=== PATIENT | female | born 1965 | race Caucasian/White ===

== ENCOUNTER → 2016-10-06 | Outpatient (CLI) | payer OTHER ==
--- NOTE | 2016-10-06 09:37 | XR ---
EXAMINATION TYPE: XR chest 2V DATE OF EXAM: 10/06/2016 9:31 AM COMPARISON: NONE HISTORY: Shortness of breath TECHNIQUE: Frontal and lateral views of the chest are obtained. FINDINGS: Scattered senescent parenchymal changes noted. Hyperinflation compatible with COPD. No evidence for infiltrate. No evidence for atelectasis. Heart size is stable. Mediastinal structures are stable and grossly unremarkable. No evidence for hilar prominence. Degenerative changes dorsal spine. IMPRESSION: 1. No evidence for acute pulmonary disease.
== END | disposition home or self-care (01) ==
LOC: RADXRMAIN 09:18
PROVIDERS: ATTEND Otolaryngology
DX: R05 Cough (principal)
CPT/HCPCS: 71020

== ENCOUNTER → 2017-05-28 | Outpatient (CLI) | payer OTHER | END | disposition home or self-care (01) | LOC: LABPAT 16:32 | PROVIDERS: ATTEND Orthopaedic Surgery | DX: Z01.812 Encounter for preprocedural laboratory examination (principal) | CPT/HCPCS: 87070 ==

== ENCOUNTER 2017-06-04 08:00 | Inpatient (IN) | payer OTHER ==
[2017-05-31 08:51] VITALS: BMI 40.6
[~2017-06-04 08:00] MED LIST: ACETAMINOPHEN TAB 500 MG TAB PO ONE; DEXAMETHASONE SOD PHOSPHATE 10 MG/ML 1 ML VIAL IV ONE; HYDROmorphone 0.5 MG/0.5 ML SYRINGE IVP PRN; LACTATED RINGERS 1,000 ML IV SCH; MELOXICAM 7.5 MG TAB PO ONE; MIDAZOLAM 2 MG/2 ML VIAL IV PRN; ONDANSETRON 4 MG/2 ML VIAL IVP ONE; SCOPOLAMINE 1.5MG/72HR PATCH TRANSDERM ONE; TRANEXAMIC ACID 1,000 MG in SODIUM CHLORIDE 0.9% 100 ML IVPB ONE; ceFAZolin 2 GM in SODIUM CHLORIDE 0.9% 100 ML IVPB ONE
[2017-06-04] MEDS ORDERED: LIDOCAINE 1% 20 ML VIAL (10MG/ML) FOR IV START INTRADERMA ONE (11:40)
[2017-06-04] MEDS ORDERED: ROPIVACAINE 246.25 MG, EPINEPHrine 0.5 MG, KETOROLAC 30 MG, cloNIDine HCL/PF 80 MCG, WA... MISCELLANE ONE ×5 (12:14)
[2017-06-04] MEDS ORDERED: ePHEDrine SULFATE/0.9% NACL/PF 50 MG/5 ML SYRINGE IV ONE (12:20)
[2017-06-04] MEDS ORDERED: PROPOFOL 10 MG/ML 20 ML VIAL IV ONE (12:20)
[2017-06-04] MEDS ORDERED: SODIUM CHLORIDE 0.9% 100 ML BAG ONE (12:20)
[2017-06-04] MEDS ORDERED: fentaNYL (PF) 50 MCG/ML 2 ML AMP ONE (12:20)
[2017-06-04] MEDS ORDERED: MIDAZOLAM 2 MG/2 ML VIAL ONE (12:20)
[2017-06-04] MEDS ORDERED: TRANEXAMIC ACID 1,000 MG/10 ML VIAL ONE (12:20)
[2017-06-04] MEDS ORDERED: NA PHOS,M-B/NA PHOS,DI-BA 133 ML ENEMA RECTAL PRN (14:35)
[2017-06-04] MEDS ORDERED: BISACODYL 10 MG SUPP RECTAL PRN (14:35)
[2017-06-04] MEDS ORDERED: hydrOXYzine PAMOATE 25 MG CAP PO PRN (14:35)
[2017-06-04] MEDS ORDERED: NALOXONE 0.4 MG/ML 1 ML VIAL IV PRN (14:35)
[2017-06-04] MEDS ORDERED: MAGNESIUM HYDROXIDE 2,400 MG/10 ML CUP PO PRN (14:35)
[2017-06-04] MEDS ORDERED: HYDROmorphone 0.5 MG/0.5 ML SYRINGE IVP PRN ×2 (14:35)
[2017-06-04] MEDS ORDERED: ACETAMINOPHEN TAB 325 MG TAB PO PRN (14:35)
--- NOTE | 2017-06-04 14:40 | P.OP ---
Date of Procedure: 06/04/17 Procedure(s) Performed: PREOPERATIVE DIAGNOSIS: Right knee severe osteoarthritis with genu varum POSTOPERATIVE DIAGNOSIS: Right knee severe osteoarthritis with genu varum OPERATION: Right knee cemented total replacement arthroplasty. ANESTHESIA: Spinal ESTIMATED BLOOD LOSS: 100 ml. PARACHUTE MENDER: Grisel Ramirez PA-C (assistance with: patient positioning, retraction, exposure, hemostasis, leg positioning, implantation, irrigation, closure, dressing) COMPLICATIONS: None apparent. COMPONENTS IMPLANTED: Persona system from [employer] INDICATIONS: Ольга is a 52 year old female with a history of right knee osteoarthritis. The patient's knee is end-stage, and conservative management has failed. The operation of knee replacement has been discussed at length in the office, as well as potential risks and complications. These are inclusive of, but not limited to: bleeding, infection, scarring, discomfort, blood vessel and nerve damage, need for further surgery, failure to relieve symptoms, persistence, recurrence, or worsening of problems, loosening, dislocation, wear , blood clot, pulmonary embolism, , gait dysfunction, stiffness, and other risks as discussed in the office. The patient elects to proceed and the consent form has been signed. PROCEDURE: The patient was taken to the operating room and positioned on the operating room table in the supine position. Anesthesia was initiated. Care was taken to make sure that all pressure points were adequately padded. The operative lower extremity was prepped and draped in the usual aseptic fashion using ChloraPrep. Ioban drape was used for the case and the patient received intravenous antibiotics within one hour of the incision. A pneumotourniquet and leg dejesus were used for the case. The limb was exsanguinated with an Esmarch bandage and the tourniquet was inflated to 300 mmHg. Time-out was called confirming the patient's identity, side, procedure and administration of antibiotics and TXA. The incision was then created midline directly over the knee, carried down through skin and into the subcutaneous tissues and down to fascia. Full thickness subcutaneous medial flap was developed. Medial parapatellar arthrotomy was performed and the interior of the knee was inspected. There was end-stage osteoarthritis of the knee with a mild to moderate genu varum type deformity. The fat pad was excised and proximal medial release on the tibia was completed using meticulous dissection and a curved osteotome. The anterior cruciate ligament was taken down. Note was made of significant attrition of the anterior and significant degenerative appearance of the posterior cruciate ligaments. The exposure was excellent. The knee was flexed 90 degrees and the patella was everted. A spot was chosen on the femur approximately 1 cm anterior to the posterior cruciate ligament insertion and an intramedullary hole was created within the femur. The intramedullary guide was then set to 5 degrees of valgus. The distal cutting block was attached and pinned into position. An appropriate amount of distal femoral resection was set. The oscillating saw was then used to make the distal femoral cut. This cut was confirmed to be flat with the flat end of an osteotome. The retractors were placed around the tibia and the tibial surface was addressed. The angle and depth of resection was adjusted using an extramedullary cutting guide. The guide had a built-in 3 degree posterior slope cut. Once the cutting guide was adjusted appropriately and in line with the axis of the tibia and confirmed to be in good position in relation to the second metatarsal and transmalleolar axis, the tibial cut was then created with protection of the posterior neurovascular structures and the collateral ligaments. The tibial cut surface was removed and sized. Femoral sizing was then accomplished using anterior referencing. Care was taken to analyze the posterior condyles for signs of deficiency or severe wear, and adjustments to the guide were made, as appropriate. 3 degree external rotation pins were placed. The cutting jig for the femur was applied to these pins. The planned cuts were further analyzed prior to performing them with the oscillating saw. No femoral notching was produced. Bone fragments were removed and the cut surfaces were finished, as necessary, with a reciprocating saw. Spacer block technique was then used to confirm that the flexion and extension gaps were equal. Soft tissue releases and adjustment of the tibial and/or femoral cuts were made, as necessary, until the gaps were equal. This included release of the posterior cruciate ligament, which was tight in this patient and , if left unreleased, would have resulted in poor kinematics and possibly early loosening. The femur was then further finished for a posterior cruciate ligament substituting component. Patellar resurfacing was performed using a reamer. The size of the required patellar component was estimated and the patellar surface was then reamed down to a residual thickness which would recreate the te-moak thickness with the component. The placement of the patellar component was influenced by the degree of patellar subluxation, if any, noted on the preoperative x-rays. Prior to placing trial components, anesthetic solution consisting of ropivicaine with epinephrine, ketorolac, and clonidine was injected carefully and methodically in a grid pattern using aspiration technique into the soft tissue around the knee circumferentially, starting with the deeper tissues first and progressing to fascia, and then finally the skin/subcutaneous tissue. Particular care was taken when injecting the posterior capsule. The trial components were inserted. The tibial tray was allowed to self center and the patella was noted to track very well. The position of the tibial component was marked and the tibia was then finished for a stemmed tibial component. Cement was mixed on the back table and applied to the final components. Trial components were removed and the cut surfaces of the bone were pulse lavaged thoroughly and dried. Cement was then applied to the tibial surface and pressurized into the surface using finger pressurization technique. The tibial component was then applied and excess cement was removed after it was impacted securely and noted to be flush with the cut surface. In similar fashion, the cement was applied to the cut femoral surface, pressurized in using finger pressurization and the component was impacted into place. Excess cement was removed. The polyethylene spacer was then implanted and locked into position. The patellar component was then applied in similar technique and a patellar clamp was used to hold the patella in place as the cement hardened. Once the cement had fully hardened, the knee was reinspected. Any other cement extrusion was removed and final kinematic testing showed range of motion from 0 to 130 degrees with excellent stability, both medially and laterally and appropriate alignment of the leg. Patellar tracking was excellent. The knee was then thoroughly pulse lavaged with normal saline. The tourniquet was deflated and hemostasis was obtained with electrocautery and IV tranexamic acid, 1 g given at the start of the operation and 1 g at the start of closure. Closure was with #2 Ethibond in the fascia/capsule and supplemented with #2 Quill, 2-0 Vicryl suture was used for the subcutaneous tissues and 3-0 Quill for the skin. Dermabond/Steri-Strips were then applied. A lightly compressive dressing was applied using Webril and an Fahad wrap. The patient was then transferred to stretcher and taken to the recovery room in stable condition. Sponge and needle counts were correct.
[2017-06-04] MEDS: LACTATED RINGERS 1,000 ML IV SCH (14:59)
--- NOTE | 2017-06-04 14:59 | XR ---
EXAMINATION TYPE: XR knee limited RT DATE OF EXAM: 06/04/2017 CLINICAL HISTORY: Postoperative evaluation Two views of the right knee are submitted. Identified are changes of total knee arthroplasty with femoral and tibial components appearing well seated. Postsurgical soft tissue changes are noted. Alignment is anatomic.
[2017-06-04] MEDS ORDERED: CLOBETASOL PROP 0.05% CR 15GM TOPICAL PRN (15:30)
[2017-06-04] MEDS: FERROUS SULFATE 325 MG TAB PO SCH (17:45)
[2017-06-04] MEDS: HYDROcodone/APAP 5-325MG 1 EACH TAB PO PRN (17:56)
[2017-06-04] MEDS ORDERED: WARFARIN 5 MG TAB PO ONE (18:00)
[2017-06-04] MEDS ORDERED: ZOLPIDEM 5 MG TAB PO PRN (18:27)
[2017-06-04] MEDS: ceFAZolin 2 GM in SODIUM CHLORIDE 0.9% 100 ML IVPB SCH (20:01)
[2017-06-04] MEDS: SENNOSIDES-DOCUSATE SODIUM 1 EACH TAB PO SCH (20:01)
--- NOTE | 2017-06-04 20:18 | P.CONS ---
History of Present Illness - Reason for Consult Consult date: 06/04/17 medical management Requesting physician: Karlo Lane - Chief Complaint Postop knee osteoarthritis/repair. - History of Present Illness This is a consultation note on a 52-year-old white female who was essentially admitted for knee repair. Right knee arthroplasty was done today. She is an obese woman with history of hypertension and chronic pain, who has lost approximately 50 pounds in the last several months. She doing excellent as far as her dietary control. She has not seen postoperative for postop medical management. She is in minimal pain at this point. No significant voiding difficulties. No nausea, vomiting or diarrhea. Review of Systems All systems: negative Past Medical History Past Medical History: Hypertension, Osteoarthritis (OA), Skin Disorder, Sleep Apnea/CPAP/BIPAP Additional Past Medical History / Comment(s): rash rt ankle, previous sleep apnea no longer requires cpap History of Any Multi-Drug Resistant Organisms: None Reported Past Surgical History: Bariatric Surgery, Bladder Surgery, Cholecystectomy, Hernia Repair, Orthopedic Surgery Additional Past Surgical History / Comment(s): left thumb, rt shoulder,rt knee, shila carpal tunnel, clif en y 2004 Past Anesthesia/Blood Transfusion Reactions: No Reported Reaction Past Psychological History: Depression Smoking Status: Former smoker Past Alcohol Use History: None Reported Additional Past Alcohol Use History / Comment(s): quit smoking 1999 smoked 3ppd started at age 4 Past Drug Use History: None Reported - Past Family History Brother(s) Family Medical History: Deep Vein Thrombosis (DVT) Medications and Allergies Home Medications Medication Instructions Recorded Confirmed Type Bisoprolol-Hctz 10-6.25 mg [Ziac 1 tab PO QAM 05/31/17 06/04/17 History 10-6.25] Clobetasol Propionate [Temovate 1 applic TOPICAL DAILY PRN 05/31/17 06/04/17 History 0.05% Cream] Ferrous Sulfate [Feosol] 325 mg PO BID 05/31/17 06/04/17 History HYDROcodone/APAP 10-325MG [[place] 1 tab PO Q6H PRN 05/31/17 06/04/17 History 10-325] Meloxicam [Mobic] 7.5 mg PO DAILY PRN 05/31/17 06/04/17 History [place]-3 Fatty Acids/Fish Oil [Fish 1 cap PO DAILY 05/31/17 06/04/17 History Oil 1,000 mg Softgel] buPROPion HCL [Wellbutrin XL] 300 mg PO QAM 05/31/17 06/04/17 History HYDROcodone/APAP 5-325MG [[place] 1 - 2 each PO Q4-6H PRN #90 tab 06/04/17 Rx 5-325] Sennosides-Docusate Sodium 1 tab PO BID #60 tablet 06/04/17 Rx [Senokot-S] Warfarin [Coumadin] 2.5 mg PO DAILY #1 tab 06/04/17 Rx Allergies Allergy/AdvReac Type Severity Reaction Status Date / Time No Known Allergies Allergy Verified 06/04/17 14:57 Physical Exam Vitals: Vital Signs Temp Pulse Pulse Resp BP Pulse Ox 06/04/17 17:45 51 L 132/79 06/04/17 17:30 51 L 132/79 06/04/17 17:15 53 L 112/62 06/04/17 17:00 50 L 125/62 06/04/17 16:45 51 L 106/66 06/04/17 16:30 58 L 107/68 06/04/17 16:15 53 L 112/63 06/04/17 16:00 53 L 102/52 06/04/17 15:45 97.5 F L 55 L 16 110/53 95 06/04/17 15:32 59 L 16 101/55 95 06/04/17 15:16 50 L 16 107/57 95 06/04/17 15:01 50 L 16 116/62 94 L 06/04/17 14:45 48 L 16 110/60 100 06/04/17 14:33 97.2 F L 56 L 16 102/57 100 06/04/17 11:37 97.9 F 51 L 16 119/66 100 Intake and Output 06/04/17 06/04/17 06/04/17 06:59 14:59 22:59 Intake Total 1100 Output Total 50 Balance 1050 Intake: IV 1100 Output: Estimated Blood Loss 50 Other: Weight 107.501 kg Patient Weight 06/05/17 06:59 Weight 107.501 kg - Constitutional General appearance: obese - EENT Eyes: EOMI - Neck Neck: no lymphadenopathy - Respiratory Respiratory: bilateral: CTA - Cardiovascular Rhythm: regular Heart sounds: normal: S1, S2 - Gastrointestinal General gastrointestinal: soft, no tenderness - Integumentary Integumentary: no jaundiced - Neurologic Neurologic: CNII-XII intact, focal deficits - Psychiatric Psychiatric: appropriate affect Assessment and Plan (1) History of arthroplasty of both knees Status: Acute (2) Essential (primary) hypertension Status: Acute (3) Hyperlipemia Status: Acute (4) Obesity Status: Acute Plan: Reconcile home medications. Pulmonary toilet. DVT prophylaxis per orthopedic surgery. Reconcile medications. Check CBC and CMP in a.m. CODE STATUS is full otherwise. Time with Patient: Less than 30
[2017-06-04] MEDS ORDERED: TEMAZEPAM 15 MG CAP PO PRN (22:00)
[2017-06-05] MEDS: HYDROcodone/APAP 5-325MG 1 EACH TAB PO PRN ×4 (00:20→21:07)
[2017-06-05] MEDS: ceFAZolin 2 GM in SODIUM CHLORIDE 0.9% 100 ML IVPB SCH (03:42)
[2017-06-05] MEDS: ONDANSETRON 4 MG/2 ML VIAL IVP PRN ×2 (05:16→15:31)
[2017-06-05] MEDS: LACTATED RINGERS 1,000 ML IV SCH ×2 (06:50→10:50)
[2017-06-05 07:17] LABS: INR 1.4 (<1.2); Prothrombin Time 13.8 sec (9.0-12.0)
[2017-06-05 07:24] LABS: Basophils % (A) 0 %; CH 29.2; CHCM 32.3; Eosinophils # (A) 0.1 k/uL (0-0.7); Eosinophils % (A) 1 %; HCT 34.6 % (34.0-46.0); HDW 2.98; HGB 11.4 gm/dL (11.4-16.0); Luc # (Auto) 0.06; Luc % (Auto) 1; Lymphocytes # (A) 0.9 k/uL (1.0-4.8); Lymphocytes % (A) 10 %; MCH 29.8 pg (25.0-35.0); MCHC 32.8 g/dL (31.0-37.0); MCV 90.8 fL (80.0-100.0); Mean Platelet Volume 6.8; Monocytes # (A) 0.6 k/uL (0-1.0); Monocytes % (A) 6 %; Neutrophils # (A) 7.9 k/uL (1.3-7.7); Neutrophils % (A) 83 %; RBC 3.81 m/uL (3.80-5.40); RDW 13.1 % (11.5-15.5); WBC 9.5 k/uL (3.8-10.6); WBC (Perox) 10.28
[2017-06-05] MEDS: BISOPROLOL-HCTZ 10-6.25 MG 1 EACH TAB PO SCH (07:58)
[2017-06-05] MEDS: MELOXICAM 7.5 MG TAB PO SCH (08:10)
[2017-06-05] MEDS: FERROUS SULFATE 325 MG TAB PO SCH ×2 (08:10→17:38)
[2017-06-05] MEDS: buPROPion XL 300 MG TAB.ER.24H PO SCH (08:10)
[2017-06-05] MEDS ORDERED: NON-FORMULARY DRUG (Omega-3 Fatty Acids/Fish Oil [Fish Oil 1,000 Mg Softgel] 1 CAP) PO SCH (09:00)
--- NOTE | 2017-06-05 09:22 | P.PN ---
Subjective Principal diagnosis: Status post right total knee arthroplasty This is a 52 year-old female post right total knee arthroplasty. This is post- op day 1. The patient was evaluated at the bedside today. The patient denies nausea, vomiting, abdominal pain, shortness of breath, and chest pain this morning. She states her pain is controlled at this time. The patient has been up with physical therapy and ambulated in the hallway. Objective - Vital Signs Vital signs: Vital Signs Temp 97.2 F L 06/05/17 07:00 Pulse 50 L 06/05/17 07:00 Resp 16 06/05/17 07:00 BP 112/54 06/05/17 07:00 Pulse Ox 100 06/05/17 07:00 Intake & Output 06/04/17 06/05/17 06/05/17 18:59 06:59 18:59 Intake Total 1100 3600 Output Total 50 Balance 1050 3600 Weight 107.501 kg Intake: IV 1100 Intake, IV Titration 2000 Amount Lactated Ringers 1,000 ml 1800 @ 100 mls/hr IV .Q10H RD Rx#:[id number] ceFAZolin 2 gm In Sodium 200 Chloride 0.9% 100 ml @ 100 mls/hr IVPB Q8H RD Rx#:[id number] Oral 1600 Output: Estimated Blood Loss 50 Other: Voiding Method Toilet # Voids 4 - Exam The patient does not appear in acute distress. Alert and orientated x3. Dressing is clean dry and intact. Incision appears fine with no erythema or active drainage. Calf is soft and nontender. Good foot and ankle motion without difficulty. Sensation and circulatory status is intact. - Labs CBC & Chem 7: 06/05/17 06:51 Labs: Abnormal Lab Results - Last 24 Hours (Table) 06/05/17 06/05/17 Range/Units 06:51 06:51 Neutrophils # 7.9 H (1.3-7.7) k/uL Lymphocytes # 0.9 L (1.0-4.8) k/uL PT 13.8 H (9.0-12.0) sec INR 1.4 H (<1.2) Laboratory Tests 06/05/17 06:51 PT 13.8 H INR 1.4 H Assessment and Plan (1) Primary osteoarthritis of right knee Status: Acute (2) Status post right knee replacement Status: Acute Plan: 1. Continue pain control 2. Anticoagulation with Coumadin per protocol 3. Continue physical therapy, start CPM, and ambulation 4. Anticipate discharge home tomorrow
[2017-06-05] MEDS: MULTIVITAMINS, THERA 1 EACH TAB PO SCH (12:21)
[2017-06-05] MEDS ORDERED: WARFARIN 7.5 MG TAB PO ONE (18:00)
[2017-06-05] MEDS: SENNOSIDES-DOCUSATE SODIUM 1 EACH TAB PO SCH (21:07)
[2017-06-06] MEDS: HYDROcodone/APAP 5-325MG 1 EACH TAB PO PRN ×2 (02:23→07:44)
[2017-06-06 06:59] VITALS: BP 136/64; PULSE 63; RESP 16; TEMP 98
[2017-06-06 06:59] LABS: Prothrombin Time 19.5 sec (9.0-12.0)
[2017-06-06] MEDS: LACTATED RINGERS 1,000 ML IV SCH (07:25)
--- NOTE | 2017-06-06 07:48 | P.DS ---
Providers Date of admission: 06/04/17 11:17 Expected date of discharge: 06/06/17 Attending physician: Karlo Lane Consults: 06/04/17 14:35 Consult Physician Routine Consulting Provider: Marcela Ya Consult Reason/Comments: medical management Do you want consulting provider notified?: Yes Primary care physician: Joshua Soriano - Discharge Diagnosis(es) (1) Primary osteoarthritis of right knee Current Visit: Yes Status: Acute (2) Status post right knee replacement Current Visit: Yes Status: Acute Hospital Course: This is a 52-year-old female who was last seen with complaint of continued right knee pain. The patient has a known history of degenerative arthritis of the right knee and presents to discuss surgical options. After discussion and consideration the patient elects to proceed with total right knee arthroplasty. The patient is seen preoperatively by her primary care physician and cleared for surgery. The patient is admitted to [facility] for total right knee arthroplasty. The procedures performed without complication or sequelae. Patient is doing well postoperatively. Vital signs are stable at discharge. Labs are stable at discharge. the patient is ambulating well with walker with minimal assistance. The patient is discharged to home on postop day #2 pending medical clearance. Please see orders and refer to the med rec for accurate list of medications. Plan - Discharge Summary New Discharge Prescriptions: New HYDROcodone/APAP 5-325MG [[place] 5-325] 1 - 2 each PO Q4-6H PRN #90 tab PRN Reason: Pain Sennosides-Docusate Sodium [Senokot-S] 1 tab PO BID #60 tablet Warfarin [Coumadin] 2.5 mg PO DAILY #1 tab No Action buPROPion HCL [Wellbutrin XL] 300 mg PO QAM Meloxicam [Mobic] 7.5 mg PO DAILY PRN PRN Reason: Pain HYDROcodone/APAP 10-325MG [[place] 10-325] 1 tab PO Q6H PRN PRN Reason: Pain Ferrous Sulfate [Feosol] 325 mg PO BID Clobetasol Propionate [Temovate 0.05% Cream] 1 applic TOPICAL DAILY PRN PRN Reason: Rash Bisoprolol-Hctz 10-6.25 mg [Ziac 10-6.25] 1 tab PO QAM [place]-3 Fatty Acids/Fish Oil [Fish Oil 1,000 mg Softgel] 1 cap PO DAILY Discharge Medication List Bisoprolol-Hctz 10-6.25 mg [Ziac 10-6.25] 1 tab PO QAM 05/31/17 [History] Clobetasol Propionate [Temovate 0.05% Cream] 1 applic TOPICAL DAILY PRN [History] Ferrous Sulfate [Feosol] 325 mg PO BID 05/31/17 [History] HYDROcodone/APAP 10-325MG [[place] 10-325] 1 tab PO Q6H PRN 05/31/17 [History] Meloxicam [Mobic] 7.5 mg PO DAILY PRN 05/31/17 [History] [place]-3 Fatty Acids/Fish Oil [Fish Oil 1,000 mg Softgel] 1 cap PO DAILY [History] buPROPion HCL [Wellbutrin XL] 300 mg PO QAM 05/31/17 [History] HYDROcodone/APAP 5-325MG [[place] 5-325] 1 - 2 each PO Q4-6H PRN #90 tab 06/04/17 [Rx] Sennosides-Docusate Sodium [Senokot-S] 1 tab PO BID #60 tablet 06/04/17 [Rx] Warfarin [Coumadin] 2.5 mg PO DAILY #1 tab 06/04/17 [Rx] Follow up Appointment(s)/Referral(s): Grisel Ramirez, AG [PHYSICIAN SEAFOOD TECHNOLOGY SPECIALIST] - 2 Weeks [facility], [NON-STAFF] - Ambulatory/Diagnostic Orders: Continuous Passive Motion (CPM) Machine [DME.AMB1] Time Frame: 3 Weeks, Facility : [facility], Location: Case Management Prothrombin Time INR [LAB.AMB] Location: Determined By Patient Activity/Diet/Wound Care/Special Instructions: May bear wt as tolerated with walker. May shower if no drainage from incision. CPM 5-6h daily. CPM Through [facility], please call when arrive home [phone] Discharge Disposition: HOME WITH HOME HEALTH SERVICES
[2017-06-06] MEDS: MELOXICAM 7.5 MG TAB PO SCH (08:21)
[2017-06-06] MEDS: FERROUS SULFATE 325 MG TAB PO SCH (08:21)
[2017-06-06] MEDS: BISOPROLOL-HCTZ 10-6.25 MG 1 EACH TAB PO SCH (08:22)
[2017-06-06] MEDS: buPROPion XL 300 MG TAB.ER.24H PO SCH (08:22)
[2017-06-06] MEDS: ONDANSETRON 4 MG/2 ML VIAL IVP PRN (10:51)
[2017-06-06] MEDS: MULTIVITAMINS, THERA 1 EACH TAB PO SCH (11:44)
--- NOTE | 2017-06-06 22:39 | P.PN ---
Subjective Progress Note Date: 06/06/17 Principal diagnosis: Continuing care.Status post knee arthroplasty on the right. This is a continue proximal not on a 52-year-old white female who is status post op day #2 for knee arthroplasty. She is seen essentially for medical management. She has not underlying history of obesity which is being very well taken care of by recent dietary loss of weight and history of hypertension which is stable. Objective - Vital Signs Vital signs: Vital Signs Temp 98.0 F 06/06/17 06:58 Pulse 63 06/06/17 06:58 Resp 16 06/06/17 06:58 BP 136/64 06/06/17 06:58 Pulse Ox 97 06/06/17 06:58 Intake & Output 06/06/17 06/06/17 06/07/17 06:59 18:59 06:59 Intake Total 2100 Balance 2100 Intake: Intake, IV Titration 300 Amount Lactated Ringers 1,000 ml 300 @ 100 mls/hr IV .Q10H RD Rx#:[id number] Oral 1800 Other: Voiding Method Toilet # Voids 2 1 - Constitutional General appearance: Present: obese - EENT Eyes: Present: abnormal pupil, PERRLA - Neck Neck: Absent: lymphadenopathy - Respiratory Respiratory: bilateral: CTA - Cardiovascular Rhythm: regular Heart sounds: normal: S1, S2 - Gastrointestinal General gastrointestinal: Present: soft. Absent: tenderness - Integumentary Integumentary: Absent: rash - Psychiatric Psychiatric: Present: A&O x's 3 - Labs CBC & Chem 7: 06/05/17 06:51 Labs: Abnormal Lab Results - Last 24 Hours (Table) 06/06/17 Range/Units 06:36 PT 19.5 H (9.0-12.0) sec INR 2.0 H (<1.2) Assessment and Plan (1) History of arthroplasty of both knees Status: Acute (2) Essential (primary) hypertension Status: Acute (3) Hyperlipemia Status: Acute (4) Obesity Status: Acute Plan: Anticipate discharge today. Increase activity per physical therapy. Home health as necessary.
== END 2017-06-06 12:51 | disposition home health service (06) | DRG 470 ==
LOC: 2ORMAIN 11:17 → 3SUR 14:54
PROVIDERS: ADMIT Orthopaedic Surgery; ATTEND Orthopaedic Surgery
PROC: 0SRC0J9 Replacement of Right Knee Joint with Synthetic Substitute, Cemented, Open Approach (ICD-10-PCS; principal; 2017-06-04 12:30)
DX: M17.11 Unilateral primary osteoarthritis, right knee (principal); I10 Essential (primary) hypertension; E78.5 Hyperlipidemia, unspecified; E66.9 Obesity, unspecified; G47.30 Sleep apnea, unspecified; Z79.01 Long term (current) use of anticoagulants; F32.9 Major depressive disorder, single episode, unspecified; Z79.899 Other long term (current) drug therapy; M21.161 Varus deformity, not elsewhere classified, right knee; Z87.891 Personal history of nicotine dependence
CPT/HCPCS: 81025; 85025; 85610; 88300

== ENCOUNTER 2017-09-16 09:34 | Emergency (ER) | payer OTHER ==
[2017-09-16 09:42] VITALS: RESP 18
--- NOTE | 2017-09-16 10:11 | ED ---
General Adult HPI - General Chief complaint: Abdominal Pain Stated complaint: Right side pain Time Seen by Provider: 09/16/17 09:55 Source: patient, RN notes reviewed Mode of arrival: ambulatory Limitations: no limitations - History of Present Illness Initial comments: Patient is a 52-year-old female who presents emergency room today with chief complaint of right upper quadrant pain that started yesterday. She states that she was reaching up to get something with a countertop at the right sided rib. She states she stretched felt immediate pain to this area. States that she was able to continue to work and as the day went on it seemed to get worse. She states that time she went to bed last night she was having increased pain with any movements of turning and twisting. She states is located lower quadrant. She states feels muscular. She states she went to work but was having pain so she went to urgent care and was advised coming here to the emergency room. Patient states she has not taken any medication for this. She denies any other complaints or symptoms currently. Patient denies any recent fever, chills, shortness of breath, chest pain, back pain, nausea or vomiting, numbness or tingling, dysuria or hematuria, constipation or diarrhea, headaches or visual changes, or any other complaints. - Related Data Home Medications Medication Instructions Recorded Confirmed Ferrous Sulfate [Feosol] 325 mg PO BID 05/31/17 06/04/17 [place]-3 Fatty Acids/Fish Oil [Fish 1 cap PO DAILY 05/31/17 06/04/17 Oil 1,000 mg Softgel] buPROPion HCL [Wellbutrin XL] 300 mg PO QAM 05/31/17 06/04/17 Diclofenac Sodium Gel [Voltaren 4 gm TOPICAL QID PRN 09/16/17 09/16/17 Gel] Meloxicam [Mobic] 15 mg PO DAILY PRN 09/16/17 09/16/17 Allergies Allergy/AdvReac Type Severity Reaction Status Date / Time celery AdvReac Vomiting Verified 09/16/17 10:17 Review of Systems ROS Statement: Those systems with pertinent positive or pertinent negative responses have been documented in the HPI. ROS Other: All systems not noted in ROS Statement are negative. Past Medical History Past Medical History: Hypertension, Osteoarthritis (OA), Skin Disorder, Sleep Apnea/CPAP/BIPAP Additional Past Medical History / Comment(s): rash rt ankle, previous sleep apnea no longer requires cpap History of Any Multi-Drug Resistant Organisms: None Reported Past Surgical History: Bariatric Surgery, Bladder Surgery, Cholecystectomy, Hernia Repair, Orthopedic Surgery Additional Past Surgical History / Comment(s): left thumb, rt shoulder,total rt knee replaced, shila carpal tunnel, clif en y 2004 Past Anesthesia/Blood Transfusion Reactions: No Reported Reaction Past Psychological History: Depression Smoking Status: Former smoker Past Alcohol Use History: None Reported Past Drug Use History: None Reported - Past Family History Brother(s) Family Medical History: Deep Vein Thrombosis (DVT) General Exam - General Exam Comments Initial Comments: General: The patient is awake and alert, in no distress, and does not appear acutely ill. Eye: Pupils are equal, round and reactive to light, extra-ocular movements are intact. No nystagmus. There is normal conjunctiva bilaterally. No signs of icterus. Ears, nose, mouth and throat: There are moist mucous membranes and no oral lesions. Neck: The neck is supple, there is no tenderness or JVD. Cardiovascular: There is a regular rate and rhythm. No murmur, rub or gallop is appreciated. Respiratory: Lungs are clear to auscultation, respirations are non-labored, breath sounds are equal. No wheezes, stridor, rales, or rhonchi. Gastrointestinal: Soft, non-distended, non-tender abdomen without masses or organomegaly noted. Patient does have tenderness over the anterior right lower ribs on palpation. No bruising or swelling. There is no rebound or guarding present. No CVA tenderness. Bowel sounds are unremarkable. Musculoskeletal: Normal ROM, no tenderness. Strength 5/5. Sensation intact. Pulses equal bilaterally 2+. Neurological: A&O x 3. CN II-XII intact, There are no obvious motor or sensory deficits. Coordination appears grossly intact. Speech is normal. Skin: Skin is warm and dry and no rashes or lesions are noted. Psychiatric: Cooperative, appropriate mood & affect, normal judgment. Limitations: no limitations Course Vital Signs 09/16/17 09:39 Temperature 96.8 F L Pulse Rate 55 L Respiratory 18 Rate Blood Pressure 141/67 O2 Sat by Pulse 100 Oximetry Medical Decision Making - Medical Decision Making Patient reexamined at this time shows no signs of distress. She is resting comfortably. Patient's pain reproduced on palpation to the right lower anterior ribs. There is no tenderness into the abdomen. Patient vital stable. Chest x-ray with ribs revealed and shows no acute fracture dislocation or other abnormality. Patient states she does have pain medication at home that she can use. Advised to brace holding area if she needs cough sneeze with certain movements. Advised follow-up the family doctor in the next 2 days. Advised return to emergency room symptoms increase worsen or for any other concerns. Disposition Clinical Impression: Rib contusion Disposition: HOME SELF-CARE Condition: Good Instructions: Rib Contusion (ED) Additional Instructions: Please use pain medication as discussed. Please brace the area with hands when you cough, sneeze or any movement. Please follow-up with the family doctor symptoms are not improving. Please return here to the emergency room symptoms increase worsen or for any other concerns. Referrals: Joshua Soriano MD [Primary Care Provider] - 1-2 days Time of Disposition: 11:06
--- NOTE | 2017-09-16 10:47 | XR ---
EXAMINATION TYPE: XR ribs RT w pa chest x-ray , 5 VIEWS DATE OF EXAM ORDERED: 09/16/2017 HISTORY: Pain. COMPARISON: Previous chest x-ray dated 10/06/2016.. FINDINGS: The lungs are clear. Pleural spaces are clear. The heart is not enlarged. There is no evid ence of pneumothorax. No displaced rib fracture is seen. IMPRESSION: I DO NOT SEE A DISPLACED RIB FRACTURE AT THIS TIME.
[2017-09-16] MEDS ORDERED: KETOROLAC 60 MG/2 ML VIAL IM STA (10:58)
[2017-09-16 11:14] VITALS: BP 137/63; PULSE 57; TEMP 97
== END 2017-09-16 11:17 | disposition home or self-care (01) ==
LOC: EC 09:34
DX: S20.219A Contusion of unspecified front wall of thorax, initial encounter (principal); F32.9 Major depressive disorder, single episode, unspecified; Z87.891 Personal history of nicotine dependence; Z79.899 Other long term (current) drug therapy; X50.9XXA Other and unspecified overexertion or strenuous movements or postures, initial encounter; Z91.018 Allergy to other foods; Y93.89 Activity, other specified
CPT/HCPCS: 71101; 99284; 96372; J1885

== ENCOUNTER → 2020-02-25 | Outpatient (CLI) | payer OTHER ==
--- NOTE | 2020-02-25 23:25 | CONS ---
CONSULTATION DATE OF SERVICE: 02/25/2020 This patient is a 54-year-old lady who has been evaluated in Sleep Center for obstructive sleep apnea-hypopnea syndrome. HISTORY OF PRESENT ILLNESS/SLEEP-WAKE EVALUATION: Patient was diagnosed with obstructive sleep apnea in April of 2017 by a home sleep apnea test. At that time apnea-hypopnea index was 16.6. Then the patient was started on treatment with CPAP. She used it for a while, then stopped using it, and then used it again. At present she is using her CPAP but still has extremely significant excessive daytime sleepiness. Her sleep schedule is from 8 or 9 p.m. to 2:30 a.m. on weekdays and until 6 a.m. on weekends. No problems with falling asleep. She wakes up from sleep up to 3 times with nocturia. During the day she feels very sleepy, has problems with memory and concentration. [place] Sleepiness Scale is in extremely high range at 24. PAST MEDICAL HISTORY: Past medical history is positive for anemia, diabetes mellitus, arthritis. PAST SURGICAL HISTORY: Bariatric surgery, bilateral surgery for carpal tunnel syndrome, right side shoulder surgery, hernia repair, cholecystectomy. MEDICATIONS: Iron supplement, stool softener, bupropion, gabapentin, diclofenac. SOCIAL HISTORY: Negative. REVIEW OF SYSTEMS: Significant excessive daytime sleepiness even while using her CPAP equipment. PHYSICAL EXAMINATION: GENERAL: A pleasant lady without distress. VITAL SIGNS: BP 137/73, HR 66, RR 16, height 5 feet 3 inches, weight 236, body mass index 48.1, temperature 97.9, oxygen saturation at room air 98%. HEENT: PERRLA, EOMI. Evaluation of oropharynx showed tongue protrudes midline. Mallampati II. NECK: Supple. No JVD. Thyroid is not palpable. Neck measures 15 inches in circumference. LUNGS: Clear to percussion and to auscultation. Good air exchange. No wheezing or rhonchi. HEART: S1, S2 regular. No murmurs, gallops or rubs. ABDOMEN: Obese. EXTREMITIES: No clubbing or cyanosis. RESIDENT CARE ASSISTANT: Awake, alert, and oriented X3. Cranial nerves 2 to 7 intact. There is no fasciculation or atrophy. noted. No focal deficits observed. IMPRESSION: 1. Obstructive sleep apnea-hypopnea syndrome. The patient continues to feel significantly sleepy while using her CPAP equipment. [place] Sleepiness Scale is 24. 2. Obesity. 3. History of arthritis. 4. History of anemia. 5. History of diabetes mellitus in the past. 6. Status post bariatric surgery. 7. Status post cholecystectomy. 8. Status post carpal tunnel syndrome surgery bilaterally. 9. Status post surgery on the right shoulder. PLAN: 1. Prescription for all necessary CPAP supplies. 2. CPAP titration with a following multiple sleep latency test for objective evaluation of patient's excessive daytime sleepiness or possible diagnosis of hypersomnia, narcolepsy. Thank you very much for allowing me to participate in the management of your patient. Sincerely, Speedy Barajas MD, PhD, FAASM Diplomat of [employer] Automatic Equipment Technician of [facility] [place] MMODL / GOPALN: [id number] /
== END | disposition home or self-care (01) ==
LOC: SLEEP 14:57
PROVIDERS: ATTEND Internal Medicine
DX: G47.33 Obstructive sleep apnea (adult) (pediatric) (principal); E66.9 Obesity, unspecified; M19.90 Unspecified osteoarthritis, unspecified site; Z68.42 Body mass index [BMI] 45.0-49.9, adult; Z90.49 Acquired absence of other specified parts of digestive tract; Z99.89 Dependence on other enabling machines and devices; Z87.39 Personal history of other diseases of the musculoskeletal system and connective tissue; Z86.2 Personal history of diseases of the blood and blood-forming organs and certain disorders involving the immune mechanism; Z86.39 Personal history of other endocrine, nutritional and metabolic disease; Z86.69 Personal history of other diseases of the nervous system and sense organs; Z98.84 Bariatric surgery status; Z98.890 Other specified postprocedural states; Z79.899 Other long term (current) drug therapy; Z79.1 Long term (current) use of non-steroidal anti-inflammatories (NSAID)
CPT/HCPCS: 99211

== ENCOUNTER → 2020-12-07 | Outpatient (CLI) | payer OTHER ==
--- NOTE | 2020-12-07 15:55 | US ---
EXAMINATION TYPE: US kidneys/renal and bladder DATE OF EXAM: 12/07/2020 COMPARISON: NONE CLINICAL HISTORY: N28.9 Disorder of kidney and ureter, unspecified. EXAM MEASUREMENTS: Right Kidney: 13.8 X 4.7 X 5.3 cm Left Kidney: 12.7 X 5.9 X 5.9 cm Right Kidney: No hydronephrosis or masses seen Left Kidney: small bulla. Cyst measures 1.2 x 1.2 x 1.1 cm inferior pole Bladder: wnl IMPRESSION: 1. Left renal cyst
== END | disposition home or self-care (01) ==
LOC: RADUSWWP 15:14
PROVIDERS: ATTEND Family Medicine
DX: N28.1 Cyst of kidney, acquired (principal)
CPT/HCPCS: 76770

== ENCOUNTER → 2021-05-25 | Outpatient (CLI) | payer OTHER ==
--- NOTE | 2021-05-25 20:54 | SFUN ---
SLEEP CENTER FOLLOW UP NOTE DATE OF SERVICE: 05/25/2021 This 56-year-old lady has been followed in Sleep Center for treatment of obstructive sleep apnea-hypopnea syndrome and significant excessive daytime sleepiness. The last time I saw the patient was in the middle of 2019, and at that time because of significant sleepiness while she was on treatment with CPAP, I wanted to repeat CPAP titration with a following multiple sleep latency test. Recently the patient was not using CPAP equipment regularly, but she continued to snore and continued to have multiple awakenings. Even while using the machine, she still has multiple awakenings from sleep and feels sleepiness during the day. Her last sleep study was done in 2017. It was a home sleep apnea test and that showed apnea-hypopnea index 16.6. The patient's weight increased since last year from 236 pounds up to 277.4 pounds. [place] Sleepiness Scale today is in very high range of 16. The patient's CPAP unit is very old. MEDICATIONS: 1. Wellbutrin 300 mg once a day. 2. VESIcare 10 mg once a day. 3. Gabapentin 600 mg 3 times a day. 4. Iron supplement. PHYSICAL EXAMINATION: GENERAL: Pleasant patient in no distress. VITAL SIGNS: BP 132/83, HR 77, RR 16, height 5 feet 4 inches, weight 277.4, body mass index 47.7, temperature 97.6, oxygen saturation at room air 98%. HEENT: PERRLA, EOMI, evaluation of oropharynx showed tongue protrudes midline. NECK: Supple, no JVD. Thyroid is not palpable. LUNGS: Clear to percussion and to auscultation. Good air exchange. No wheezing or rhonchi. HEART: S1, S2 regular. No murmurs, gallops, or rubs. ABDOMEN: Obese. EXTREMITIES: No clubbing or cyanosis. ENVIRONMENTAL SERVICE AIDE: Awake, alert, and oriented X3. Cranial nerves 2 to 7 intact. There is no fasciculation or atrophy. noted. No focal deficits observed. IMPRESSION: 1. Obstructive sleep apnea-hypopnea syndrome in moderate range; by results of home sleep apnea test in 2016, apnea-hypopnea index was 16.6. Even while using CPAP equipment, the patient has multiple awakenings from sleep and sleepiness during the day. CPAP unit is old. 2. Obesity. Patient's weight increased by about 40 pounds since her visit one year ago. 3. History of arthritis. 4. History of anemia. 5. History of diabetes mellitus in the past. 6. Status post bariatric surgery. 7. Status post cholecystectomy. 8. Status post carpal tunnel syndrome surgery bilaterally. 9. Status post surgery on the right shoulder. PLAN: 1. CPAP titration for re-evaluation of effective CPAP pressure at the present time after significant change of weight. 2. Patient will receive a new CPAP unit after CPAP titration. 3. Losing weight. 4. Sleep hygiene with regular time in bed for at least 7-1/2 to 8 hours. 5. No driving if feeling any sleepiness. 6. Follow-up visit when the patient is on her new CPAP equipment to evaluate clinical response on treatment, compliance with treatment and to make any necessary adjustments. We may need MSLT at that time if her respiration is not under full control and if she continues to have symptoms of excessive daytime sleepiness. Thank you very much for allowing me to participate in the management of your patient. Sincerely, Speedy Barajas MD, PhD, FAASM Diplomat of [employer] Sleep Medicine Board of [employer] Remittance Clerk of [facility] [place] MMODL / IJN: [id number] /
== END | disposition home or self-care (01) ==
LOC: SLEEP 14:26
PROVIDERS: ATTEND Internal Medicine
DX: G47.33 Obstructive sleep apnea (adult) (pediatric) (principal); E66.9 Obesity, unspecified; Z87.39 Personal history of other diseases of the musculoskeletal system and connective tissue; Z86.2 Personal history of diseases of the blood and blood-forming organs and certain disorders involving the immune mechanism; Z98.84 Bariatric surgery status; Z83.3 Family history of diabetes mellitus; G56.00 Carpal tunnel syndrome, unspecified upper limb; Z68.42 Body mass index [BMI] 45.0-49.9, adult

== ENCOUNTER 2021-06-06 02:24 | Emergency (ER) | payer OTHER ==
[2021-06-06 02:32] VITALS: BP 154/88; PULSE 89; RESP 19; TEMP 98.6
[2021-06-06] MEDS ORDERED: SULFAMETHOX-TMP 800-160MG 1 EACH TAB PO STA (02:55)
[2021-06-06] MEDS ORDERED: CEPHALEXIN 500 MG CAP PO STA (02:55)
--- NOTE | 2021-06-06 02:57 | ED ---
Extremity Problem HPI - General Chief complaint: Extremity Problem,Nontraumatic Stated complaint: Rash on leg Time Seen by Provider: 06/06/21 02:42 Source: patient Mode of arrival: ambulatory - History of Present Illness Initial comments: This patient's 56-year-old woman with complaint of redness and swelling to the medial aspect right leg above the ankle. Is been going on for approximately a day, getting worse. The patient states she had been out in the [employer] hunting season with her partner prior to onset. Patient denies any history of DVT. No chest pain, palpitations, dyspnea, hemoptysis. MD Complaint: extremity pain, extremity swelling Onset/Timin -: days(s) Location: right History of Same: No Quality: burning Consistency: constant Improves with: nothing Worsens with: nothing Associated Symptoms: denies other symptoms - Related Data Home Medications Medication Instructions Recorded Confirmed Ferrous Sulfate [Feosol] 325 mg PO DAILY 05/31/17 06/07/21 buPROPion HCL [Wellbutrin XL] 300 mg PO DAILY 05/31/17 06/07/21 Gabapentin 600 mg PO TID 06/07/21 06/07/21 Solifenacin Succinate [Vesicare] 10 mg PO DAILY 06/07/21 06/07/21 Previous Rx's Medication Instructions Recorded Cephalexin [Keflex] 500 mg PO Q6HR #28 cap 06/06/21 Allergies Allergy/AdvReac Type Severity Reaction Status Date / Time leflunomide Allergy Rash/Hives Verified 06/07/21 08:42 celery AdvReac Vomiting Verified 06/07/21 08:42 Review of Systems ROS Statement: Those systems with pertinent positive or pertinent negative responses have been documented in the HPI. ROS Other: All systems not noted in ROS Statement are negative. Constitutional: Denies: fever, chills, weakness Respiratory: Denies: cough, dyspnea, hemoptysis Cardiovascular: Denies: chest pain, palpitations, edema, syncope Gastrointestinal: Denies: abdominal pain, vomiting Skin: Denies: rash Neurological: Denies: headache, weakness Past Medical History Past Medical History: Hypertension, Osteoarthritis (OA), Skin Disorder, Sleep Apnea/CPAP/BIPAP Additional Past Medical History / Comment(s): rash rt ankle, previous sleep apnea no longer requires cpap History of Any Multi-Drug Resistant Organisms: MRSA Date of last positivie culture/infection: unknown MDRO Source:: right arm Past Surgical History: Bariatric Surgery, Bladder Surgery, Cholecystectomy, Hernia Repair, Orthopedic Surgery Additional Past Surgical History / Comment(s): left thumb, rt shoulder,total rt knee replaced, shila carpal tunnel, clif en y 2004 Past Anesthesia/Blood Transfusion Reactions: No Reported Reaction Past Psychological History: Depression Smoking Status: Former smoker Past Alcohol Use History: None Reported Past Drug Use History: None Reported - Past Family History Brother(s) Family Medical History: Deep Vein Thrombosis (DVT) General Exam General appearance: alert, in no apparent distress Head exam: Present: atraumatic, normocephalic Eye exam: Present: normal appearance. Absent: scleral icterus, conjunctival injection Neck exam: Present: normal inspection Respiratory exam: Present: normal lung sounds bilaterally. Absent: respiratory distress, wheezes, rales, rhonchi, stridor Cardiovascular Exam: Present: regular rate, normal rhythm, normal heart sounds. Absent: systolic murmur, diastolic murmur, rubs, gallop GI/Abdominal exam: Present: soft. Absent: distended, tenderness, guarding, rebound, rigid, mass Back exam: Present: normal inspection. Absent: CVA tenderness (R), CVA tenderness (L) Neurological exam: Present: alert Skin exam: Present: warm, dry, intact, erythema. Absent: vesicles, petechiae, pallor, mottled, abrasion Course Vital Signs 06/06/21 02:26 Temperature 98.6 F Pulse Rate 89 Respiratory 19 Rate Blood Pressure 154/88 O2 Sat by Pulse 97 Oximetry Medical Decision Making - Medical Decision Making Patient's 56-year-old woman with some erythema and warmth to the medial aspect right leg proximal ankle. At this point no systemic symptoms. No exam evidence suggestive of DVT. Suspect early cellulitis and started antibiotics here and will continue as outpatient. Patient is also given prescription to have duplex Doppler, as they're currently not in the building and the patient does have risk factor of . Discussed appropriate further care and follow-up as well as return parameters. Disposition Clinical Impression: Cellulitis Disposition: HOME SELF-CARE Condition: Good Instructions (If sedation given, give patient instructions): Cellulitis (ED) Additional Instructions: as we discussed, follow-up in the morning to have the ultrasound of your leg Prescriptions: Cephalexin [Keflex] 500 mg PO Q6HR #28 cap Is patient prescribed a controlled substance at d/c from ED?: No Referrals: Joshua Soriano MD [Primary Care Provider] - 1-2 days
== END 2021-06-06 03:23 | disposition home or self-care (01) ==
LOC: EC 02:24
DX: L03.115 Cellulitis of right lower limb (principal); I10 Essential (primary) hypertension; Z87.891 Personal history of nicotine dependence; Z88.8 Allergy status to other drugs, medicaments and biological substances; Z91.018 Allergy to other foods
CPT/HCPCS: 99282

== ENCOUNTER 2021-06-06 21:13 | Observation (INO) | payer OTHER ==
[2021-06-07] MEDS ORDERED: VANCOMYCIN IV PER PHARMACY 1 EACH MISC MISCELLANE PRN (01:00)
--- NOTE | 2021-06-07 01:02 | ED ---
Skin/Abscess/FB HPI - General Chief complaint: Skin/Abscess/Foreign Body Stated complaint: recheck Time Seen by Provider: 06/07/21 00:56 Source: patient, RN notes reviewed Mode of arrival: ambulatory Limitations: no limitations - History of Present Illness Initial comments: This 56-year-old female presents emergency from chief complaint of rash her righ t leg. Patient is started on Sunday states it has progressively worsened and inclusion swelling, redness. Patient states she seen your surgeon oral antibiotics, had ultrasound which negative for acute DVT. Patient states she rashes above and below her knee in which she's had a prior knee replacement. Patient was advised, back emergency department after having a telehealth visit. Patient denies any known fever states that she's had hot and cold rash. - Related Data Home Medications Medication Instructions Recorded Confirmed Ferrous Sulfate [Feosol] 325 mg PO BID 05/31/17 06/04/17 [place]-3 Fatty Acids/Fish Oil [Fish 1 cap PO DAILY 05/31/17 06/04/17 Oil 1,000 mg Softgel] buPROPion HCL [Wellbutrin XL] 300 mg PO QAM 05/31/17 06/04/17 Diclofenac Sodium Gel [Voltaren 4 gm TOPICAL QID PRN 09/16/17 09/16/17 Gel] Meloxicam [Mobic] 15 mg PO DAILY PRN 09/16/17 09/16/17 Previous Rx's Medication Instructions Recorded Cephalexin [Keflex] 500 mg PO Q6HR #28 cap 06/06/21 Sulfamethox-Tmp 800-160Mg [Bactrim 1 each PO Q12HR #14 tab 06/06/21 Ds] Allergies Allergy/AdvReac Type Severity Reaction Status Date / Time leflunomide Allergy Rash/Hives Verified 06/06/21 22:04 celery AdvReac Vomiting Verified 06/06/21 22:04 Review of Systems ROS Statement: Those systems with pertinent positive or pertinent negative responses have been documented in the HPI. ROS Other: All systems not noted in ROS Statement are negative. Past Medical History Past Medical History: Hypertension, Osteoarthritis (OA), Skin Disorder, Sleep Apnea/CPAP/BIPAP Additional Past Medical History / Comment(s): rash rt ankle, previous sleep apnea no longer requires cpap History of Any Multi-Drug Resistant Organisms: MRSA Date of last positivie culture/infection: unknown MDRO Source:: right arm Past Surgical History: Bariatric Surgery, Bladder Surgery, Cholecystectomy, Hernia Repair, Orthopedic Surgery Additional Past Surgical History / Comment(s): left thumb, rt shoulder,total rt knee replaced, shila carpal tunnel, clif en y 2004 Past Anesthesia/Blood Transfusion Reactions: No Reported Reaction Past Psychological History: Depression Smoking Status: Former smoker Past Alcohol Use History: None Reported Past Drug Use History: None Reported - Past Family History Brother(s) Family Medical History: Deep Vein Thrombosis (DVT) General Exam Limitations: no limitations General appearance: alert, in no apparent distress Head exam: Present: atraumatic, normocephalic, normal inspection Respiratory exam: Present: normal lung sounds bilaterally. Absent: respiratory distress, wheezes, rales, rhonchi, stridor Cardiovascular Exam: Present: regular rate, normal rhythm, normal heart sounds. Absent: systolic murmur, diastolic murmur, rubs, gallop, clicks Extremities exam: Present: other (Right lower extremity has erythema, increased warmth, pedal pulses are palpable bilaterally there is mild tenderness, mild redness to the right groin) Neurological exam: Present: alert, oriented X3, CN II-XII intact Skin exam: Present: warm, dry, intact, normal color. Absent: rash Course Vital Signs 06/06/21 22:02 Temperature 98.6 F Pulse Rate 76 Respiratory 18 Rate Blood Pressure 142/90 O2 Sat by Pulse 98 Oximetry Disposition Referrals: Joshua Soriano MD [Primary Care Provider] - 1-2 days
[2021-06-07] MEDS ORDERED: VANCOMYCIN 2,000 MG in SODIUM CHLORIDE 0.9% 500 ML 500 ML IVPB ONE (01:15)
[2021-06-07] MEDS ORDERED: ACETAMINOPHEN TAB 500 MG TAB PO PRN (03:33)
[2021-06-07 03:48] LABS: Basophils % (A) 1 %; Eosinophils # (A) 0.1 k/uL (0-0.7); Eosinophils % (A) 3 %; HCT 38.3 % (34.0-46.0); HGB 12.6 gm/dL (11.4-16.0); Lymphocytes # (A) 1.3 k/uL (1.0-4.8); Lymphocytes % (A) 28 %; MCH 29.2 pg (25.0-35.0); MCHC 32.9 g/dL (31.0-37.0); MCV 88.7 fL (80.0-100.0); Mean Platelet Volume 6.7; Monocytes # (A) 0.4 k/uL (0-1.0); Monocytes % (A) 9 %; Neutrophils # (A) 2.5 k/uL (1.3-7.7); Neutrophils % (A) 56 %; Platelet Count 204 k/uL (150-450); RBC 4.32 m/uL (3.80-5.40); WBC 4.4 k/uL (3.8-10.6)
[2021-06-07 04:00] LABS: ALT 30 U/L (4-34); AST 38 U/L (14-36); African American GFR (CKD) >90 (>60 ml/min/1.73 sqM); Albumin 3.9 g/dL (3.5-5.0); Alkaline Phosphatase 122 U/L (38-126); Anion Gap 6 mmol/L; Blood Urea Nitrogen 22 mg/dL (7-17); Carbon Dioxide 24 mmol/L (22-30); Chloride 106 mmol/L (98-107); Glucose 102 mg/dL (74-99); Non-African American GFR(CKD) >90 (>60 ml/min/1.73 sqM); Potassium 4.3 mmol/L (3.5-5.1); Sodium 136 mmol/L (137-145); Total Bilirubin 0.6 mg/dL (0.2-1.3); Total Protein 6.8 g/dL (6.3-8.2)
[2021-06-07] MEDS ORDERED: NALOXONE 0.4 MG/ML 1 ML VIAL IV PRN (08:39)
[2021-06-07] MEDS ORDERED: NAFCILLIN 2 GM in DEXTROSE 5% IN WATER 100 ML IVPB ONE ×2 (09:00)
[2021-06-07] MEDS: SODIUM CHLORIDE 0.9% 1,000 ML IV SCH (09:26)
[2021-06-07] MEDS: VANCOMYCIN 2,000 MG in SODIUM CHLORIDE 0.9% 500 ML 500 ML IVPB SCH (12:21)
[2021-06-07] MEDS: ACETAMINOPHEN TAB 325 MG TAB PO PRN (14:51)
[2021-06-07] MEDS: NAFCILLIN 2 GM in DEXTROSE 5% IN WATER 100 ML IVPB SCH ×4 (15:38→18:38)
[2021-06-07] MEDS: GABAPENTIN 300 MG CAP PO SCH ×2 (16:44→22:13)
[2021-06-07] MEDS: TROSPIUM CHLORIDE 20 MG TABLET PO SCH (23:05)
--- NOTE | 2021-06-07 23:16 | P.CONS ---
History of Present Illness - Reason for Consult Consult date: 06/07/21 right leg cellulitis Requesting physician: Joshua Soriano - Chief Complaint right leg and thigh redness and pain x few days - History of Present Illness History of present illness : Patient is 56-year female presenting to the ER for evaluation of right lower extremity swelling and redness that started on Sunday and has been progressively getting worse for the last 3 days patient denies any history of any trauma patient apparently has been evaluated in the outpatient setting and did have a ultrasound that was negative for DVT the patient was started on oral antibiotic however the patient did not have any improvement she did have a progressive swelling and redness to the right leg and the right medial thigh area patient been complaining of some burning pain to the right medial thigh and right leg intensity 6 out of 10 radiation patient currently do not have any blister or any skin breakdown or drainage on presentation to the hospital patient was afebrile and no fever has been recorded subsequently did have a normal white count kidney function has been normal patient has been started on cefazolin and vancomycin was admitted to the hospital infectious disease was consulted for further management of antibiotic therapy Review of system: CONSTITUTIONAL: Positive for weakness denies high-grade he fever. EYES: No complaint. ENT: No complaint. RESPIRATORY: No complaint. CARDIOVASCULAR: No complaint. GENITOURINARY: No complaint. GASTROINTESTINAL: No complaint. MUSCULOSKELETAL: No complaint. INTEGUMENTARY as per history of present illness. PSYCHOLOGIC: No complaint. ENDOCRINE: No complaint. NEUROLOGIC: No complaint. Past medical history : Reviewed, documented below Past surgical history : Reviewed, documented below Social history: Reviewed, documented below Medications: Reviewed, as documented below EXAMINATION: Vital sigans= Reviewed and documented below GENERAL DESCRIPTION: Middle-aged male lying in bed, no distress. No tachypnea or accessory muscle of respiration use. HEENT: Shows Pallor , no scleral icterus. Oral mucous membrane is dry. NECK: Trachea central, no thyromegaly. LUNGS: Unlabored breathing. Clear to auscultation anteriorly. No wheeze or crackle. HEART: S1, S2, regular rate and rhythm. ABDOMEN: Soft, no tenderness , guarding or rigidity EXTREMITIES: Right lower leg and medial thigh with diffuse swelling redness no discharge from open wound or any drainage SKIN: No rash, no masses palpable. NEUROLOGICAL: The patient is awake, alert, oriented x3, mood and affect normal. LABS AND RADIOLOGY: Reviewed results see below Assessment : Patient with acute right lower extremity cellulitis in this patient who did have diffuse swelling redness likely streptococcal disease clinic suspicion low for gram-negative or MRSA infection Plan: 1-Marked area of the redness 2-discontinue vancomycin and cefazolin 3-cefazolin 2 g every 8 hours We will follow on clinical condition and cultures to further adjust medication if needed Thank you for this consultation we will follow the patient along with you Past Medical History Past Medical History: Hypertension, Osteoarthritis (OA), Skin Disorder, Sleep Apnea/CPAP/BIPAP Additional Past Medical History / Comment(s): rash rt ankle, previous sleep apnea no longer requires cpap History of Any Multi-Drug Resistant Organisms: MRSA Year Discovered:: unknown MDRO Source:: right arm Past Surgical History: Bariatric Surgery, Bladder Surgery, Cholecystectomy, Hernia Repair, Orthopedic Surgery Additional Past Surgical History / Comment(s): left thumb, rt shoulder,total rt knee replaced, shila carpal tunnel, clif en y 2004 Past Anesthesia/Blood Transfusion Reactions: No Reported Reaction Past Psychological History: Depression Smoking Status: Former smoker Past Alcohol Use History: None Reported Past Drug Use History: None Reported - Past Family History Brother(s) Family Medical History: Deep Vein Thrombosis (DVT) Medications and Allergies Home Medications Medication Instructions Recorded Confirmed Type Ferrous Sulfate [Feosol] 325 mg PO DAILY 05/31/17 06/07/21 History buPROPion HCL [Wellbutrin XL] 300 mg PO DAILY 05/31/17 06/07/21 History Cephalexin [Keflex] 500 mg PO Q6HR #28 cap 06/06/21 06/07/21 Rx Gabapentin 600 mg PO TID 06/07/21 06/07/21 History Solifenacin Succinate [Vesicare] 10 mg PO DAILY 06/07/21 06/07/21 History Allergies Allergy/AdvReac Type Severity Reaction Status Date / Time leflunomide Allergy Rash/Hives Verified 06/07/21 08:42 celery AdvReac Vomiting Verified 06/07/21 08:42 Physical Exam Vitals: Vital Signs Temp Pulse Resp BP Pulse Ox 06/07/21 12:00 67 18 95 06/07/21 11:00 61 18 95 06/07/21 10:00 65 18 95 06/07/21 09:15 97.1 F L 65 18 115/69 95 06/07/21 06:51 63 18 124/74 95 06/06/21 22:02 98.6 F 76 18 142/90 98 Results CBC & Chem 7: 06/07/21 03:01 06/07/21 03:01 Labs: Abnormal Lab Results - Last 24 Hours (Table) 06/07/21 Range/Units 03:01 Sodium 136 L (137-145) mmol/L BUN 22 H (7-17) mg/dL Creatinine 0.46 L (0.52-1.04) mg/dL Glucose 102 H (74-99) mg/dL AST 38 H (14-36) U/L
[2021-06-08] MEDS: SODIUM CHLORIDE 0.9% 1,000 ML IV SCH ×2 (01:26→11:44)
[2021-06-08] MEDS: VANCOMYCIN 2,000 MG in SODIUM CHLORIDE 0.9% 500 ML 500 ML IVPB SCH (07:54)
--- NOTE | 2021-06-08 07:56 | P.HPIM ---
History of Present Illness H&P Date: 06/08/21 Chief Complaint: LE cellulitis This is a history of physical 56-year-old white female with known history of hypertension who comes in with right lower extremity redness. Cellulitis is diagnosed and infectious disease now been consulted. She had significant pain. No fall insect bite leg trauma stated. THE LOWER EXTREMITY HAS BEEN DONE TO RULE OUT DVT. No stated fever No previous history of cellulitis Review of Systems Constitutional: Denies chills, Denies fever Eyes: denies blurred vision, denies pain Ears, nose, mouth and throat: Denies headache, Denies sore throat Cardiovascular: Denies chest pain, Denies shortness of breath Respiratory: Denies cough Gastrointestinal: Denies abdominal pain, Denies diarrhea, Denies nausea, Denies vomiting Past Medical History Past Medical History: Hypertension, Osteoarthritis (OA), Skin Disorder, Sleep Apnea/CPAP/BIPAP Additional Past Medical History / Comment(s): rash rt ankle, previous sleep apnea no longer requires cpap History of Any Multi-Drug Resistant Organisms: MRSA Date of last positivie culture/infection: unknown MDRO Source:: right arm Past Surgical History: Bariatric Surgery, Bladder Surgery, Cholecystectomy, Hernia Repair, Orthopedic Surgery Additional Past Surgical History / Comment(s): left thumb, rt shoulder,total rt knee replaced, shila carpal tunnel, clif en y 2004 Past Anesthesia/Blood Transfusion Reactions: No Reported Reaction Past Psychological History: Depression Smoking Status: Former smoker Past Alcohol Use History: None Reported Past Drug Use History: None Reported - Past Family History Brother(s) Family Medical History: Deep Vein Thrombosis (DVT) Medications and Allergies Home Medications Medication Instructions Recorded Confirmed Type Ferrous Sulfate [Feosol] 325 mg PO DAILY 05/31/17 06/07/21 History buPROPion HCL [Wellbutrin XL] 300 mg PO DAILY 05/31/17 06/07/21 History Cephalexin [Keflex] 500 mg PO Q6HR #28 cap 06/06/21 06/07/21 Rx Gabapentin 600 mg PO TID 06/07/21 06/07/21 History Solifenacin Succinate [Vesicare] 10 mg PO DAILY 06/07/21 06/07/21 History Allergies Allergy/AdvReac Type Severity Reaction Status Date / Time leflunomide Allergy Rash/Hives Verified 06/07/21 08:42 celery AdvReac Vomiting Verified 06/07/21 08:42 Physical Exam Vitals: Vital Signs Temp Pulse Pulse Resp BP BP Pulse Ox 06/08/21 04:39 97.7 F 71 18 129/60 98 06/07/21 20:00 98.2 F 75 16 138/72 96 06/07/21 18:37 97.1 F L 62 18 104/53 95 06/07/21 18:00 62 18 104/53 95 06/07/21 17:00 69 18 95 06/07/21 16:00 65 18 95 06/07/21 15:00 66 18 95 06/07/21 14:00 63 18 117/68 95 06/07/21 13:00 67 18 95 06/07/21 12:00 67 18 95 06/07/21 11:00 61 18 95 06/07/21 10:00 65 18 95 06/07/21 09:15 97.1 F L 65 18 115/69 95 Intake and Output 06/07/21 06/08/21 06/08/21 22:59 06:59 14:59 Intake Total 550 Balance 550 Intake: Intake, IV Titration 50 Amount ceFAZolin 2 gm In Sodium 50 Chloride 0.9% 50 ml @ 100 mls/hr IVPB Q8HR [facility] Rx# :[id number] Oral 500 Other: # Voids 1 2 - Constitutional General appearance: obese - EENT Eyes: no abnormal pupil - Neck Neck: no lymphadenopathy - Respiratory Respiratory: bilateral: CTA - Cardiovascular Rhythm: regular Heart sounds: normal: S1, S2 Abnormal Heart Sounds: no S3 Gallop - Gastrointestinal General gastrointestinal: soft, no tenderness - Integumentary Integumentary: cellulitis Results CBC & Chem 7: 06/07/21 03:01 06/07/21 03:01 Labs: Microbiology - Last 24 Hours (Table) 06/07/21 03:16 Blood Culture - Preliminary Blood No Growth after 24 hours 06/07/21 03:00 Blood Culture - Preliminary Blood No Growth after 24 hours Thrombosis Risk Factor Assmnt - Choose All That Apply Any of the Below Risk Factors Present?: No Each Factor Represents 1 point: Swollen legs (current) Other Risk Factors: No Other congenital or acquired thrombophilia - If yes, enter type in comment: No Thrombosis Risk Factor Assessment Total Risk Factor Score: 1 Thrombosis Risk Factor Assessment Level: Very Low Risk Assessment and Plan (1) Cellulitis Current Visit: No Status: Acute Code(s): L03.90 - CELLULITIS, UNSPECIFIED SNOMED Code(s): 026333334 (2) Essential (primary) hypertension Current Visit: No Status: Acute Code(s): I10 - ESSENTIAL (PRIMARY) HYPERTENSION SNOMED Code(s): 03993986 (3) History of arthroplasty of both knees Current Visit: No Status: Acute Code(s): Z96.653 - PRESENCE OF ARTIFICIAL KNEE JOINT, BILATERAL SNOMED Code(s): 099112213 (4) Hyperlipemia Current Visit: No Status: Acute Code(s): E78.5 - HYPERLIPIDEMIA, UNSPECIFIED SNOMED Code(s): 19920887 (5) Obesity Current Visit: No Status: Acute Code(s): E66.9 - OBESITY, UNSPECIFIED SNOMED Code(s): 312922803 Plan: Continue current regimen of metabolic treatment. Check CBC and CMP in a.m. Blood cultures if not done. Reconcile home medications. Anticipate discharge in next 24-48 hours
[2021-06-08] MEDS: FERROUS SULFATE 325 MG TAB PO SCH (08:26)
[2021-06-08] MEDS: GABAPENTIN 300 MG CAP PO SCH ×3 (08:26→21:54)
[2021-06-08] MEDS: buPROPion XL 300 MG TAB.ER.24H PO SCH (08:26)
[2021-06-08] MEDS: TROSPIUM CHLORIDE 20 MG TABLET PO SCH ×2 (08:26→21:54)
[2021-06-08 09:48] LABS: Basophils % (A) 1 %; Eosinophils # (A) 0.1 k/uL (0-0.7); Eosinophils % (A) 2 %; HCT 39.6 % (34.0-46.0); HGB 13.1 gm/dL (11.4-16.0); Lymphocytes % (A) 23 %; MCH 29.5 pg (25.0-35.0); MCV 89.3 fL (80.0-100.0); Mean Platelet Volume 6.9; Monocytes # (A) 0.3 k/uL (0-1.0); Monocytes % (A) 6 %; Neutrophils # (A) 2.8 k/uL (1.3-7.7); Neutrophils % (A) 66 %; Platelet Count 216 k/uL (150-450); RBC 4.44 m/uL (3.80-5.40); RDW 13.4 % (11.5-15.5); WBC 4.2 k/uL (3.8-10.6)
[2021-06-08] MEDS: ACETAMINOPHEN TAB 325 MG TAB PO PRN (21:54)
--- NOTE | 2021-06-08 23:08 | PN ---
PROGRESS NOTE DATE OF SERVICE: 06/08/2021 REASON FOR FOLLOW UP: Right lower extremity cellulitis. INTERVAL HISTORY: Patient is afebrile. The patient is breathing comfortably. Overall discomfort, swelling and redness to right leg has slightly decreased. No chest pain, shortness of breath or cough. No abdominal pain or diarrhea. PHYSICAL EXAMINATION: Blood pressure 132/65, pulse of 85, temperature 96. She is 97% on room air. General description is a middle-aged female lying in bed in no distress. Respiratory system: Unlabored breathing, clear to auscultation anteriorly. Heart S1, S2. Regular rate and rhythm. Abdomen soft, no tenderness. Right leg swelling and redness slightly decreased. LABS: Hemoglobin is 13.2, white count 14.2. DIAGNOSTIC IMPRESSION AND PLAN: Patient with acute right lower extremity cellulitis in this patient who has shown some clinical improvement. She will continue with cefazolin with a plan to finish therapy with oral Keflex and close outpatient followup. MMODL / IJN: [id number] /
[2021-06-09] MEDS: SODIUM CHLORIDE 0.9% 1,000 ML IV SCH ×2 (01:17→11:35)
[2021-06-09 06:28] LABS: HCT 36.7 % (34.0-46.0); MCH 29.7 pg (25.0-35.0); MCHC 32.7 g/dL (31.0-37.0); MCV 90.9 fL (80.0-100.0); Mean Platelet Volume 6.7; Platelet Count 185 k/uL (150-450); RBC 4.04 m/uL (3.80-5.40); RDW 12.9 % (11.5-15.5)
[2021-06-09 06:55] LABS: ALT 24 U/L (4-34); AST 23 U/L (14-36); African American GFR (CKD) >90 (>60 ml/min/1.73 sqM); Albumin 3.3 g/dL (3.5-5.0); Alkaline Phosphatase 104 U/L (38-126); Blood Urea Nitrogen 10 mg/dL (7-17); Calcium 8.8 mg/dL (8.4-10.2); Carbon Dioxide 25 mmol/L (22-30); Chloride 107 mmol/L (98-107); Glucose 103 mg/dL (74-99); Non-African American GFR(CKD) >90 (>60 ml/min/1.73 sqM); Total Bilirubin 0.5 mg/dL (0.2-1.3)
[2021-06-09 07:42] LABS: Anion Gap 7 mmol/L; Potassium 4.1 mmol/L (3.5-5.1); Sodium 139 mmol/L (137-145)
[2021-06-09] MEDS: TROSPIUM CHLORIDE 20 MG TABLET PO SCH (07:52)
[2021-06-09] MEDS: buPROPion XL 300 MG TAB.ER.24H PO SCH (07:52)
[2021-06-09] MEDS: GABAPENTIN 300 MG CAP PO SCH (07:52)
[2021-06-09] MEDS: FERROUS SULFATE 325 MG TAB PO SCH (07:52)
--- NOTE | 2021-06-09 08:11 | P.PN ---
Subjective Principal diagnosis: Cellulitis The patient is here essentially for left lower extremity cellulitis. Patient's skin has improved but is still quite an aggressive looking lesion. No fever. White count was stable. Objective - Vital Signs Vital signs: Vital Signs Temp 98.0 F 06/09/21 07:58 Pulse 78 06/09/21 07:58 Resp 18 06/09/21 07:58 BP 152/84 06/09/21 07:58 Pulse Ox 97 06/09/21 07:58 Intake & Output 06/08/21 06/09/21 06/09/21 18:59 06:59 18:59 Intake Total 1000 Balance 1000 Intake: Intake, IV Titration 1000 Amount Sodium Chloride 0.9% 1, 900 000 ml @ 75 mls/hr IV . [id number] [facility] Rx#:[id number] ceFAZolin 2 gm In Sodium 100 Chloride 0.9% 50 ml @ 100 mls/hr IVPB Q8HR [facility] Rx# :[id number] Other: # Voids 3 - Constitutional General appearance: Present: obese - EENT Eyes: Absent: abnormal pupil - Neck Neck: Absent: lymphadenopathy - Respiratory Respiratory: bilateral: CTA - Cardiovascular Rhythm: regular Heart sounds: normal: S1, S2 Abnormal Heart Sounds: Absent: S3 Gallop - Gastrointestinal General gastrointestinal: Present: soft. Absent: tenderness - Integumentary Integumentary: Present: cellulitis - Labs CBC & Chem 7: 06/09/21 05:53 06/09/21 05:53 Labs: Abnormal Lab Results - Last 24 Hours (Table) 06/09/21 Range/Units 05:53 Creatinine 0.43 L (0.52-1.04) mg/dL Glucose 103 H (74-99) mg/dL Total Protein 6.0 L (6.3-8.2) g/dL Albumin 3.3 L (3.5-5.0) g/dL Microbiology - Last 24 Hours (Table) 06/07/21 03:16 Blood Culture - Preliminary Blood No Growth after 48 hours 06/07/21 03:00 Blood Culture - Preliminary Blood No Growth after 48 hours Assessment and Plan (1) Cellulitis Current Visit: No Status: Acute Code(s): L03.90 - CELLULITIS, UNSPECIFIED SNOMED Code(s): 182597542 (2) Essential (primary) hypertension Current Visit: No Status: Acute Code(s): I10 - ESSENTIAL (PRIMARY) HYPERTENSION SNOMED Code(s): 11909112 (3) History of arthroplasty of both knees Current Visit: No Status: Acute Code(s): Z96.653 - PRESENCE OF ARTIFICIAL KNEE JOINT, BILATERAL SNOMED Code(s): 985957399 (4) Hyperlipemia Current Visit: No Status: Acute Code(s): E78.5 - HYPERLIPIDEMIA, UNSPECIFIED SNOMED Code(s): 82293155 (5) Obesity Current Visit: No Status: Acute Code(s): E66.9 - OBESITY, UNSPECIFIED SNOMED Code(s): 569903690 Plan: Continue current regimen of metabolic treatment. Blood cultures if not done. Reconcile home medications. Anticipate discharge in next 24-48 hours The patient does have a pressing matter to take care of today, if ID says she can go home, we will acquiesce and give her appropriate antibiotic treatment for discharge.
[2021-06-09 10:25] VITALS: BP 156/77; PULSE 68; RESP 16; TEMP 97.7
--- NOTE | 2021-06-09 13:30 | PN ---
PROGRESS NOTE DATE OF SERVICE: 06/09/2021 REASON FOR FOLLOW UP: Right lower extremity cellulitis. INTERVAL HISTORY: Patient was seen on rounds this morning. The patient has been afebrile, breathing comfortably. Right leg swelling and redness has improved. No chest pain, shortness of breath or cough. No diarrhea. PHYSICAL EXAMINATION: Blood pressure 156/77, pulse of 68, temp 97.7. She is 100% on room air. General description is a middle-aged female up in the room in no distress. Respiratory system: Unlabored breathing. Clear to auscultation anteriorly. Heart S1, S2. Regular rate and rhythm. Abdomen soft, no tenderness. Right leg swelling and redness has decreased. No open wound or any drainage. LABS: Hemoglobin is 12.7, white count 4.0. BUN of 10, creatinine 0.43. DIAGNOSTIC IMPRESSION AND PLAN: Patient with acute right lower extremity cellulitis failing outpatient oral therapy, possibly from and this patient has shown overall improvement on IV cefazolin. She will finish therapy with oral Keflex and close outpatient followup. MMODL / IJN: [id number] /
== END 2021-06-09 13:00 | disposition home or self-care (01) ==
LOC: EC 21:13 → 1SOBS 06-07 08:39 → 6NMEDSUR 06-07 13:08 → 1SOBS 06-07 18:19 → 6NMEDSUR 06-09 10:11
PROVIDERS: ADMIT Family Medicine; ATTEND Family Medicine
DX: L03.115 Cellulitis of right lower limb (principal); I10 Essential (primary) hypertension; E78.5 Hyperlipidemia, unspecified; E66.9 Obesity, unspecified; Z68.42 Body mass index [BMI] 45.0-49.9, adult; Z20.822 Contact with and (suspected) exposure to COVID-19; G47.30 Sleep apnea, unspecified; F32.9 Major depressive disorder, single episode, unspecified; M19.90 Unspecified osteoarthritis, unspecified site; Z79.899 Other long term (current) drug therapy; Z79.1 Long term (current) use of non-steroidal anti-inflammatories (NSAID); Z91.018 Allergy to other foods; Z88.8 Allergy status to other drugs, medicaments and biological substances; Z90.49 Acquired absence of other specified parts of digestive tract; Z98.84 Bariatric surgery status; Z86.14 Personal history of Methicillin resistant Staphylococcus aureus infection; Z87.891 Personal history of nicotine dependence; Z96.653 Presence of artificial knee joint, bilateral; Z83.2 Family history of diseases of the blood and blood-forming organs and certain disorders involving the immune mechanism
CPT/HCPCS: 99284; 96361 ×2; 96366 ×3; 96367 ×2; 96365; 36415; 80053 ×2; 83605; 85025 ×2; 85027; 87040; 87635; G0378 ×3; J3370; J0690 ×2

== ENCOUNTER → 2021-06-06 | Outpatient (CLI) | payer OTHER ==
--- NOTE | 2021-06-06 12:05 | US ---
EXAMINATION TYPE: US venous doppler duplex LE LT DATE OF EXAM: 06/06/2021 11:49 AM COMPARISON: NONE CLINICAL HISTORY: I82.A21 DVT. 2 red rash like areas at right ankle and right thigh, no h/o dvt SIDE PERFORMED: Right TECHNIQUE: The lower extremity deep venous system is examined utilizing real time linear array sonog edgard with graded compression, doppler sonography and color-flow sonography. VESSELS IMAGED: Common Femoral Vein Deep Femoral Vein Greater Saphenous Vein * Femoral Vein Popliteal Vein Small Saphenous Vein * Proximal Calf Veins (* superficial vessels) Right Leg: Negative for DVT Grayscale, color doppler, spectral doppler imaging performed of the deep veins of the right lower ext remity. There is normal flow, compressibility, vascular waveforms. IMPRESSION: No ultrasound evidence for acute DVT in the right lower extremity.
== END | disposition home or self-care (01) ==
LOC: RADUSWWP 11:34
PROVIDERS: ATTEND Emergency Medicine
DX: I82.A21 Chronic embolism and thrombosis of right axillary vein (principal)

== ENCOUNTER → 2021-10-26 | Outpatient (CLI) | payer OTHER ==
--- NOTE | 2021-10-26 18:35 | SFUN ---
SLEEP CENTER FOLLOW UP NOTE DATE OF SERVICE: 10/26/2021 This 56-year-old lady has been followed in Sleep Center for treatment of obstructive sleep apnea-hypopnea syndrome. After recent CPAP titration, patient received her new CPAP unit, and this is her first visit after she received new CPAP equipment. The patient likes her CPAP equipment and is using it every night, but she still feels some sleepiness during the day. [place] Sleepiness Scale is 17 today. I checked information from her CPAP unit. Usage is 100%, average 6 hours 43 minutes. Range of the pressure is 6 to 13 cm of water, average pressure 11.1 cm of water. Leak is 10.6 L/minute, which is acceptable. Apnea-hypopnea index is only 0.6, which is absolutely normal. MEDICATIONS: 1. Wellbutrin 300 mg once a day. 2. Gabapentin 600 mg three times a day. 3. Iron supplement. PHYSICAL EXAMINATION: GENERAL: Pleasant patient in no distress. VITAL SIGNS: BP 118/77, HR 75, RR 16, weight 279.4, temperature 97.3, oxygen saturation at room air 96%. HEENT: PERRLA, EOMI, evaluation of oropharynx showed tongue protrudes midline. NECK: Supple, no JVD. Thyroid is not palpable. LUNGS: Clear to percussion and to auscultation. Good air exchange. No wheezing or rhonchi. HEART: S1, S2 regular. No murmurs, gallops, or rubs. ABDOMEN: Obese. EXTREMITIES: No clubbing or cyanosis. STUDIO DIRECTOR: Awake, alert, and oriented X3. Cranial nerves 2 to 7 intact. There is no fasciculation or atrophy. noted. No focal deficits observed. IMPRESSION: 1. Obstructive sleep apnea-hypopnea syndrome. Patient demonstrated great compliance with treatment. Normal respiration on CPAP. 2. Patient continues to feel sleepiness during the day. [place] Sleepiness Scale is high. 3. Obesity. 4. History of arthritis. 5. History of anemia. 6. History of diabetes mellitus in the past. 7. Status post bariatric surgery. 8. Status post cholecystectomy. 9. Status post carpal tunnel syndrome surgery bilaterally. 10.Status post surgical treatment of the right shoulder. PLAN: 1. Multiple sleep latency test for objective evaluation of patient's symptoms of excessive daytime sleepiness because [place] Sleepiness Scale is in very high range and her respiration on CPAP is fully normalized. Differential diagnosis should include additional diagnosis of narcolepsy and hypersomnia. 2. Patient will continue to use PAP equipment every night for the whole night. 3. Sleep hygiene with regular time in bed for at least 7-1/2 to 8 hours. 4. Precautions related to driving. No driving if feeling sleepiness. 5. I will maintain all necessary prescription for PAP supplies including mask, tube, filters. 6. Watching weight. 7. Follow-up visit in 6 months or earlier if patient has any problems. Thank you very much for allowing me to participate in the management of your patient. Sincerely, Speedy Barajas MD, PhD, FAASM Diplomat of [place] [employer] Sleep Medicine Board of [place] [employer] [facility] [place] [place] [id number] / GOPALN: [id number] /
== END ==
LOC: SLEEP 13:53
PROVIDERS: ATTEND Internal Medicine
DX: G47.33 Obstructive sleep apnea (adult) (pediatric) (principal); E66.9 Obesity, unspecified; Z87.39 Personal history of other diseases of the musculoskeletal system and connective tissue; E11.9 Type 2 diabetes mellitus without complications; Z98.84 Bariatric surgery status; Z90.49 Acquired absence of other specified parts of digestive tract; Z98.890 Other specified postprocedural states; Z86.2 Personal history of diseases of the blood and blood-forming organs and certain disorders involving the immune mechanism; Z99.89 Dependence on other enabling machines and devices; Z88.8 Allergy status to other drugs, medicaments and biological substances; Z91.018 Allergy to other foods; Z87.891 Personal history of nicotine dependence

== ENCOUNTER → 2022-06-15 | Outpatient (CLI) | payer OTHER ==
--- NOTE | 2022-06-15 16:14 | P.PN ---
Subjective DATE: 06/15/2022 FOLLOW UP VISIT. Patient with obstructive sleep apnea hypopnea syndrome return to sleep center for follow-up visit. Information from previous visit have been reviewed. Patient is using PAP equipment every night for the whole night, getting PAP supplies in time. The patient does not have significant problems with the mask. Patient feels that the pressure is too low when she started to use machine. Sometimes patient has problems with humidification. Patient continued to feel significant sleepiness during the day. Positive history of several episodes of falling asleep while talking to somebody. [place] sleepiness scale is an extremely high range of 17. I checked information from PAP unit. PAP unit pressure 6-13, average 11.5 cm H2O. Usage is, 93 % of nights and the about 70% for more then 4 hours, average. 5 hours per night. Leak is 16.8 l/m, which is in acceptable range. Apnea Hypopnea Index is 0.8, which is perfect. MEDICATIONS:1. Wellbutrin 300 mg once a day 2., Gabapentin 600 mg 3 times a day 3.. Iron 65 mg twice a day 4., Motrin 5. [place] During physical exam: GENERAL: A pleasant patient without any distress. VITAL SIGNS: BP 142/83, HR, 81, RR, 18, weight, 293.8, temperature, 97.0, oxygen saturation at room air, 94 % . HEENT: PERRLA, EOMI.. NECK: Supple. No JVD. LUNGS: Clear to percussion and to auscultation. Good air exchange. No wheezing or rhonchi. HEART: S1, S2 regular. ABDOMEN: Soft and nontender.. Obese EXTREMITIES: No clubbing or cyanosis. LEASE EXAMINER: Awake, alert, and oriented x3. No focal deficit. Impressions: 1. Obstructive sleep apnea-hypopnea syndrome. Patient demonstrated good compliance with treatment, benefiting from treatment. 2.. Patient continued to have symptoms of significant excessive daytime sleepiness. [place] sleepiness scale is in a very high range of 17. Differential diagnosis include additional diagnosis of possible narcolepsy. 3.. Obesity. 4.. History of anemia. 5., History of arthritis. 6., History of diabetes mellitus in the past. 7.. Status post bariatric surgery. 8. Overactive bladder. 9. Status post cholecystectomy. 10. Status post the surgical treatment for carpal tunnel syndrome bilaterally. 11. Status post surgery for right shoulder. Plan: 1. Continue using PAP equipment every night for the whole night. 2. Multiple sleep latency test for objective evaluation patient symptoms of excessive daytime sleepiness. Test will be done after the night on CPAP. 3. PAP unit should stay lower then position of the head. 4. Advised patient to remove all remaining water from humidifier canister daily and make it dry after each usage. Refill canister with fresh distilled water before each usage. 5. Sleep hygiene with regular time in bed for at least 8 hours. 6. Precautions related to driving. No driving if feel any sleepiness. 7. I will maintain prescription for PAP supplies including mask, tube, filters. 8. Follow-up after multiple sleep latency test to discuss results of the test and following plan. 9. Watching and losing weight. Thank you very much for allowing me to participate in the management of your patient. Speedy Barajas MD, PhD, FAASM. Diplomat of [place] [employer], Sleep Medicine Board by [place] [employer] Certification And Selection Specialist of [place] [facility]
== END | disposition home or self-care (01) ==
LOC: SLEEP 14:54
PROVIDERS: ATTEND Internal Medicine
DX: G47.33 Obstructive sleep apnea (adult) (pediatric) (principal); E11.9 Type 2 diabetes mellitus without complications; E66.9 Obesity, unspecified; Z79.1 Long term (current) use of non-steroidal anti-inflammatories (NSAID); Z90.49 Acquired absence of other specified parts of digestive tract; Z98.84 Bariatric surgery status
CPT/HCPCS: 99212

== ENCOUNTER → 2023-05-21 | Outpatient (CLI) | payer OTHER ==
--- NOTE | 2023-05-21 15:55 | P.PN ---
Subjective DATE: 05/21/2023 FOLLOW UP VISIT. 58-year-old lady with obstructive sleep apnea hypopnea syndrome had multiple sleep latency test because she continued to have significant excessive daytime sleepiness. I discuss results of sleep study this patient in details. On the first part of the study during the night patient was on treatment with CPAP and her breathing was on full control and normal. Apnea-hypopnea index during the night was 0, which is absolutely perfect. Multiple sleep latest test has been done on the following day and consisted from 5 naps. Patient fell asleep on all naps. Mean sleep latency was 2.9 minutes. One sleep onset REM periods have been documented. Patient continued to have symptoms of excessive daytime sl eepiness [place] sleepiness scale is 16 today, which is significantly above normal and indicates sleepiness. Patient continued to use his CPAP equipment every night for the whole night. . MEDICATIONS:1. Wellbutrin 300 mg once a day 2. Gabapentin 600 mg 3. Motrin 800 mg as needed 4. Iron supplement 65 mg During physical exam: GENERAL: A pleasant patient without any distress. VITAL SIGNS: BP 132/78, HR 61, RR 16 , weight 141.4, temperature 97.6, oxygen saturation at room air 97% . HEENT: PERRLA, EOMI. NECK: Supple. No JVD. LUNGS: Clear to percussion and to auscultation. Good air exchange. No wheezing or rhonchi. HEART: S1, S2 regular. ABDOMEN: Soft and nontender. Obese EXTREMITIES: No clubbing or cyanosis. CT TECH: Awake, alert, and oriented x3. No focal deficit. Impressions: 1. Obstructive sleep apnea-hypopnea syndrome, normal respiration on CPAP. 2. Multiple sleep latency test confirmed significant excessive daytime sleepiness, mean sleep latency extremely short 2.9 minutes. One sleep onset REM periods have been documented. Patient is on treatment with SSRIs which may decrease amount of REM sleep and could be the reason for not seeing second REM sleep. Most probably narcolepsy type 2. 3. Obesity. 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 5. History of iron deficiency anemia. 6. History of diabetes mellitus in the past. 7. Status post bariatric surgery. 8. History of overactive bladder. 9. Status post cholecystectomy. 10 status post right shoulder surgery Plan: 1. Patient will start treatment with Adderall 5 mg twice a day. 2. Sleep hygiene with regular time in bed for at least 8 hours. 3. Daytime naps permitted 4. Precautions related to driving. No driving if feel any sleepiness. Patient is aware about civil and criminal liability for unsafe driving, promised to follow recommendations. 5. Patient will continue to use CPAP equipment every night for the whole night 6. Follow up visit in 4 months or earlier if patient has any problems. Thank you very much for allowing me to participate in the management of your patient. Speedy Barajas MD, PhD, FAASM. Diplomat of [employer], Sleep Medicine Board by [employer] Executive Director [employer] [facility] [place]
== END ==
LOC: 3 N SLEEP 13:23
PROVIDERS: ATTEND Internal Medicine
DX: G47.33 Obstructive sleep apnea (adult) (pediatric) (principal); E66.9 Obesity, unspecified; E11.9 Type 2 diabetes mellitus without complications; D64.9 Anemia, unspecified; N32.81 Overactive bladder; Z90.49 Acquired absence of other specified parts of digestive tract; Z98.84 Bariatric surgery status; Z96.611 Presence of right artificial shoulder joint; Z98.890 Other specified postprocedural states; Z91.018 Allergy to other foods; Z88.8 Allergy status to other drugs, medicaments and biological substances; Z87.891 Personal history of nicotine dependence

== ENCOUNTER → 2023-06-25 | Outpatient (CLI) | payer OTHER ==
--- NOTE | 2023-06-26 12:01 | MM ---
Reason for Exam: Screening (asymptomatic). Patient History: Menarche at age 12. Patient has no children. Postmenopausal. Risk Values: Lesa 5 year model risk: 1.5%. NCI Lifetime model risk: 8.3%. Tissue Density: There are scattered fibroglandular densities. Findings: Analyzed By CAD. There is no suspicious group of microcalcifications or new suspicious mass in either breast. Overall Assessment: Benign, BI-RAD 2 Management: Screening Mammogram of both breasts in 1 year. . Patient should continue monthly self-breast exams. A clinical breast exam by your physician is recommended on an annual basis. This exam should not preclude additional follow-up of suspicious palpable abnormalities. Note on Lesa scores and lifetime risk: 1. A Lesa score greater than 3% is considered moderate risk. If this is the case, consider specialist referral to assess eligibility for a risk reducing agent. 2. If overall lifetime risk for the development of breast cancer is 20% or higher, the patient may qualify for future screening with alternating mammogram and breast MRI. Electronically signed and approved by: Eduar Briceño M.D. Radiologis
== END | disposition home or self-care (01) ==
LOC: RADMAMWWP 14:33
PROVIDERS: ATTEND Family Medicine
DX: Z12.31 Encounter for screening mammogram for malignant neoplasm of breast (principal); Z78.0 Asymptomatic menopausal state
CPT/HCPCS: 77063; 77067

== ENCOUNTER → 2023-06-27 | Outpatient (CLI) | payer OTHER ==
--- NOTE | 2023-06-27 17:44 | P.PN ---
Subjective DATE: 06/27/2023 FOLLOW UP VISIT. Patient returned to sleep center for follow-up visit related to treatment of significant excessive daytime sleepiness secondary to narcolepsy. Patient was switched from Adderall to modafinil, because on and on Adderall patient developed symptoms of tiredness and become more slow than before. Presently on modafinil 300 mg in the morning patient feels better for about 56 hours, but then again developing sleepiness. .[place] sleepiness scale is 19 today. Patient continued to have treatment for obstructive sleep apnea with her CPAP unit without significant problems. Range of the pressure 6-13 cm of water, average 9.2 cm of water. Usage is 53% of nights, average 4.8 hours. Leak is 17.6 L/m which is in acceptable range. Apnea hypopnea index is 0.8, which is perfect. MEDICATIONS:1.. Wellbutrin 2. Gabapentin 3. Iron 65 mg once a day 4. Medication for cholesterol patient does not remember the name 5. Modafinil 300 mg in the morning During physical exam: GENERAL: A pleasant patient without any distress. VITAL SIGNS: BP 144/85, HR 63, RR 16, weight 246, temperature 98.0, oxygen saturation at room air 99%. HEENT: PERRLA, EOMI. NECK: Supple. No JVD. LUNGS: Clear to percussion and to auscultation. Good air exchange. No wheezing or rhonchi. HEART: S1, S2 regular. ABDOMEN: Soft and nontender. EXTREMITIES: No clubbing or cyanosis. AWNING INSTALLER: Awake, alert, and oriented x3. No focal deficit. Impressions: 1. Narcolepsy confirmed by multiple sleep latency test. Mean sleep latency 2.9 minutes and one sleep onset REM.. Patient was on SSRIs which may decrease amount of REM sleep and that could be the reason for not seeing second period of REM sleep. 2. Obstructive sleep apnea hypopnea syndrome, patient demonstrated slightly low compliance with treatment, benefiting from treatment, normal respiration on CPAP. 3. Obesity patient lost weight since previous visit. 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 5. History of iron deficiency anemia. 6. History of diabetes mellitus in the past. 7. Status post bariatric surgery. 8. History of overactive bladder. 9. Status post cholecystectomy. 10 status post right shoulder surgery Plan: 1. Patient will continue treatment with modafinil, dose will be increased to 400 mg in the morning 2. Sleep hygiene with regular time in bed for at least 8 hours. 3. Daytime naps permitted 4. Precautions related to driving. No driving if feel any sleepiness. Patient is aware about civil and criminal liability for unsafe driving, promised to follow recommendations. 5. Patient will continue to use CPAP equipment every night for the whole night. 6. We'll maintain all necessary prescription for CPAP supplies. 7. Follow up visit in 4-6 months or earlier if patient has any problems. Thank you very much for allowing me to participate in the management of your patient. Speedy Barajas MD, PhD, FAASM. Diplomat of [place] [employer], Sleep Medicine Board by [employer] Hospital Nurse of [facility] [place]
== END ==
LOC: 3 N SLEEP 16:33
PROVIDERS: ATTEND Internal Medicine
DX: G47.33 Obstructive sleep apnea (adult) (pediatric) (principal); E11.9 Type 2 diabetes mellitus without complications; E66.9 Obesity, unspecified; G47.419 Narcolepsy without cataplexy; N32.81 Overactive bladder; Z90.49 Acquired absence of other specified parts of digestive tract; Z98.84 Bariatric surgery status; Z96.611 Presence of right artificial shoulder joint; Z99.89 Dependence on other enabling machines and devices; Z88.8 Allergy status to other drugs, medicaments and biological substances; Z91.018 Allergy to other foods; Z87.891 Personal history of nicotine dependence
CPT/HCPCS: 99212

== ENCOUNTER → 2023-07-16 | Outpatient (CLI) | payer OTHER ==
[2023-07-16 21:18] LABS: Appearance,BF Cloudy; Color,BF Yellow; Nucleated Cells, Body Fluid 333 /uL; RBC, Body Fluid 4700 /uL
[2023-07-16 21:19] LABS: Mononuclear WBC,Body Fluid 99 %; Polynuclear WBC,Body Fluid 1 %; Total Cells Counted,Body Fluid 100
[2023-07-17 05:39] LABS: Synovial Fld Crystals None Seen (None Seen)
== END | disposition home or self-care (01) ==
LOC: LABWHC1 15:06
PROVIDERS: ATTEND Orthopaedic Surgery
DX: M25.561 Pain in right knee (principal); Z96.651 Presence of right artificial knee joint; Z47.1 Aftercare following joint replacement surgery
CPT/HCPCS: 87070; 87075; 87205; 89050; 89060

== ENCOUNTER → 2023-09-19 | Outpatient (CLI) | payer OTHER ==
--- NOTE | 2023-09-19 16:11 | P.PN ---
Subjective DATE: 09/19/2023 FOLLOW UP VISIT. Patient with narcolepsy and obstructive sleep apnea hypopnea syndrome return to sleep center for follow-up visit. Information from previous visit have been reviewed. During previous visit in June 2023 patient demonstrated good compliance with treatment on CPAP, has normal respiration on CPAP. For last 2 months for different reasons patient was not able to use her CPAP equipment. For treatment of narcolepsy, which have been confirmed by multiple sleep latency test and mean sleep latency was extremely short only 2.9 minutes, patient previously was tried on treatment with Adderall, but developed light headedness and medication was stopped. During visit in June 2023 dose of modafinil was increased from 300 mg up to 400 mg in the morning. Patient again developed lightheadedness on treatment with modafinil, usually on the second part of the day. Without modafinil, no episodes of lightheadedness. Patient continued to have significant sleepiness. [place] Sleepiness Scale today is 18. MEDICATIONS:1. Bupropion 300 mg once a day 2. Omeprazole 20 mg once a day 3. Gabapentin 600 mg once a day 4. Atorvastatin 10 mg once a day 5. Aspirin During physical exam: GENERAL: A pleasant patient without any distress. VITAL SIGNS: BP 130/85, HR 102, RR 18 , weight 236.4, temperature 98.0, oxygen saturation at room air 99 % . HEENT: PERRLA, EOMI.low position of soft palate, Mallapati 3 . NECK: Supple. No JVD. LUNGS: Clear to percussion and to auscultation. Good air exchange. No wheezing or rhonchi. HEART: S1, S2 regular. ABDOMEN: Soft and nontender.[] EXTREMITIES: No clubbing or cyanosis. PRINT MANAGER: Awake, alert, and oriented x3. No focal deficit. Impressions: 1. Narcolepsy, confirmed by multiple sleep latency test. Mean sleep latency 2.9 minutes and one sleep onset REM. During the test patient was on SSRIs, which may decrease amount of REM sleep. On treatment with Adderall and recently with modafinil patient developed episodes of lightheadedness. 2. Obstructive sleep apnea hypopnea syndrome. 3. History of iron deficiency anemia. 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 5. History of diabetes mellitus in the past. 6. Status post bariatric surgery. 7. Status post cholecystectomy. 8. Status post right shoulder surgery. 9. Status post knee replacement recently. Plan: 1. To use CPAP equipment every night for the whole night. 2. I will start patient with Ritalin 5 mg up to 3 times a day. 3. PAP unit should stay lower then position of the head. 4. Advised patient to remove all remaining water from humidifier canister daily and make it dry after each usage. Refill canister with fresh distilled water before each usage. 5. Sleep hygiene with regular time in bed for at least 8 hours. 6. Precautions related to driving. No driving if feel any sleepiness. 7. I will maintain prescription for PAP supplies including mask, tube, filters. 8. Follow up visit in 1 months or earlier if patient has any problems. 9. Watching weight. Thank you very much for allowing me to participate in the management of your patient. Speedy Barajas MD, PhD, FAASM. Diplomat of [employer] Sleep Medicine, Sleep Medicine Board by [employer] Board of Internal Medicine Ethnographic Materials Conservator of [facility] [place]
== END ==
LOC: 3 N SLEEP 14:42
PROVIDERS: ATTEND Internal Medicine
DX: G47.33 Obstructive sleep apnea (adult) (pediatric) (principal); E11.9 Type 2 diabetes mellitus without complications; G47.52 REM sleep behavior disorder; G47.21 Circadian rhythm sleep disorder, delayed sleep phase type; G47.419 Narcolepsy without cataplexy; Z90.49 Acquired absence of other specified parts of digestive tract; Z98.84 Bariatric surgery status; Z98.890 Other specified postprocedural states; Z96.653 Presence of artificial knee joint, bilateral; Z86.2 Personal history of diseases of the blood and blood-forming organs and certain disorders involving the immune mechanism; Z99.89 Dependence on other enabling machines and devices; Z79.82 Long term (current) use of aspirin; Z91.018 Allergy to other foods; Z88.8 Allergy status to other drugs, medicaments and biological substances; Z87.891 Personal history of nicotine dependence
CPT/HCPCS: 99212

== ENCOUNTER → 2023-10-16 | Outpatient (CLI) | payer OTHER ==
--- NOTE | 2023-10-16 17:22 | CT ---
EXAMINATION TYPE: CT brain wo con DATE OF EXAM: 10/16/2023 COMPARISON: None INDICATION: memory loss x2 weeks, family h/o Alzheimer's DLP: 1141 mGycm, Automated exposure control for dose reduction was used. CONTRAST: None CT of the brain is performed utilizing 3 mm thick sections through the posterior fossa and 3 mm thick sections through the remaining calvarium. Study is performed within 24 hours of arrival to the hosp [facility]. No abnormal hyperdensity is present to suggest an acute intracranial hemorrhage. No mass lesion is evident. No acute infarcts are evident. Ventricles and sulci are appropriate for the patient age. Paranasal sinuses and mastoid air cells within the [id number] are clear. IMPRESSION: 1. No acute intracranial process. Follow-up MRI can be performed as clinically indicated.
== END | disposition home or self-care (01) ==
LOC: RADCTMAIN 15:34
PROVIDERS: ATTEND Family Medicine
DX: R41.3 Other amnesia (principal)
CPT/HCPCS: 70450

== ENCOUNTER → 2024-10-02 | Outpatient (CLI) | payer OTHER ==
[2024-10-02 16:39] VITALS: BP 131/83; PULSE 70; RESP 18; TEMP 97.9
--- NOTE | 2024-10-02 17:20 | P.PROGSL ---
Subjective DATE: 10/02/2024 FOLLOW UP VISIT. Patient with narcolepsy and obstructive sleep apnea hypopnea syndrome return to sleep center for follow-up visit. Information from previous visit have been reviewed. Patient did not use CPAP equipment for most of the nights She was off Adderall and modafinil because she had side effects from that medications. [place] sleepiness scale is significantly increased to 22. I checked information from PAP unit. PAP unit pressure 6-13, average 10.7 cm H2O. Usage is several nights for the whole year, average 6.4 hours. Leak is 23 l/m, which is in acceptable range. Apnea Hypopnea Index is 0.7, which is normal. MEDICATIONS have been reviewed, please see below. During physical exam: GENERAL: A pleasant patient without any distress. VITAL SIGNS: Please see below, weight is 267.0 lbs. HEENT: PERRLA, EOMI.low position of soft palate, Mallapati 3. NECK: Supple. No JVD. LUNGS: Clear to percussion and to auscultation. Good air exchange. No wheezing or rhonchi. HEART: S1, S2 regular. ABDOMEN: Soft and nontender.[] EXTREMITIES: No clubbing or cyanosis. CLOTH FINISHING RANGE TENDER: Awake, alert, and oriented x3. No focal deficit. Impressions: 1. Obstructive sleep apnea-hypopnea syndrome. Patient did not use CPAP equipment recently. Reading from CPAP from previous usage showed normal apnea- hypopnea index. 2. Narcolepsy confirmed by multiple sleep latency test with mean sleep latency 2.9 minutes and 1 sleep onset REM. 3. History of iron deficiency anemia. 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 5. History of diabetes mellitus in the past. 6. Status post bariatric surgery. 7. Status post cholecystectomy. 8. Status post right shoulder surgery. 9. Status post bilateral knee replacement. Plan: 1. Continue using PAP equipment every night for the whole night. Patient promised to follow recommendations 2. Sleep hygiene with regular time in bed for at least 7.5-8 hours 3. PAP unit should stay lower then position of the head. 4. Advised patient to remove all remaining water from humidifier canister daily and make it dry after each usage. Refill canister with fresh distilled water before each usage. 5. Watching weight. 6. Precautions related to driving. No driving if feel any sleepiness. 7. Patient will be started on treatment with Sunosi 75 mg once a day in the morning to prevent excessive sleepiness. 8. Follow up visit in 6 months or earlier if patient has any problems. Thank you very much for allowing me to participate in the management of your patient. Speedy Barajas MD, PhD, FAASM. Diplomat of [place] [employer] Sleep Medicine, Sleep Medicine Board by [employer] [employer] Medicine Service Station Console Operator of [facility] [place] Objective - Vital Signs Vital Signs: Vital Signs Temp 97.9 F 10/02/24 16:36 Pulse 70 10/02/24 16:36 Resp 18 10/02/24 16:36 BP 131/83 10/02/24 16:36 Pulse Ox 97 10/02/24 16:36 FiO2 Intake & Output 10/01/24 10/02/24 10/02/24 18:59 06:59 18:59 Weight 121.109 kg Home Medications: Home Medications Medication Instructions Recorded Confirmed Type Ferrous Sulfate [Iron (65 MG 65 mg PO DAILY 05/31/17 10/02/24 History Elemental)] buPROPion HCL [Wellbutrin XL] 300 mg PO DAILY 05/31/17 10/02/24 History Gabapentin 600 mg PO TID 06/07/21 06/07/21 History Solifenacin Succinate [Vesicare] 10 mg PO DAILY 06/07/21 10/02/24 History Cephalexin [Keflex] 500 mg PO Q6HR 10 Days #40 cap 06/09/21 Rx Aspirin 81 mg PO DAILY 10/02/24 10/02/24 History Atorvastatin Calcium 10 mg PO DAILY 10/02/24 10/02/24 History Gabapentin [Neurontin] 600 mg PO DAILY 10/02/24 10/02/24 History Ibuprofen [Motrin] 800 mg PO DAILY 10/02/24 10/02/24 History Omeprazole 20 mg PO DAILY 10/02/24 10/02/24 History
== END ==
LOC: 3 N SLEEP 14:57
PROVIDERS: ATTEND Internal Medicine
DX: G47.33 Obstructive sleep apnea (adult) (pediatric) (principal); G47.419 Narcolepsy without cataplexy; Z99.89 Dependence on other enabling machines and devices; Z86.2 Personal history of diseases of the blood and blood-forming organs and certain disorders involving the immune mechanism; Z98.84 Bariatric surgery status; Z90.49 Acquired absence of other specified parts of digestive tract; Z86.39 Personal history of other endocrine, nutritional and metabolic disease; Z98.890 Other specified postprocedural states; Z88.8 Allergy status to other drugs, medicaments and biological substances; Z87.891 Personal history of nicotine dependence; Z91.018 Allergy to other foods
CPT/HCPCS: 99212

== ENCOUNTER → 2025-01-22 | Outpatient (CLI) | payer OTHER ==
[2025-01-22 14:43] VITALS: BP 156/90; PULSE 65; RESP 12; TEMP 98.1
--- NOTE | 2025-01-22 15:13 | P.PROGSL ---
Subjective DATE: 01/22/2025 FOLLOW UP VISIT. Patient with obstructive sleep apnea hypopnea syndrome and narcolepsy return to sleep center for follow-up visit. Information from previous visit have been reviewed. Presently patient is on treatment with Sunosi 75 mg in the morning. With this regimen patient alertness from control during morning hours but afternoon she still feels significantly sleepy. No any side effects of medication. Patient is using PAP equipment every night for the whole night, getting PAP supplies in time. The patient does not have significant problems with the mask, PAP unit and humidification. [place] sleepiness scale is increased to 20. I checked information from PAP unit. PAP unit pressure 6-13 .1 cm H2O. Usage is 40% for more then 4 hours, average 4.5 hours per night. Leak is 29 l/m, which is in acceptable range. Apnea Hypopnea Index is 0.6, which is normal. MEDICATIONS have been reviewed, please see below. During physical exam: GENERAL: A pleasant patient without any distress. VITAL SIGNS: Please see below, weight is 275.4 lbs. HEENT: PERRLA, EOMI.low position of soft palate, Mallapati 3. NECK: Supple. No JVD. LUNGS: Clear to percussion and to auscultation. Good air exchange. No wheezing or rhonchi. HEART: S1, S2 regular. ABDOMEN: Soft and nontender.[] EXTREMITIES: No clubbing or cyanosis. [place] ATTENDANT: Awake, alert, and oriented x3. No focal deficit. Impressions: 1. Obstructive sleep apnea-hypopnea syndrome. Patient demonstrated great compliance with treatment, benefiting from treatment. 2. Narcolepsy, mean sleep latency by MSLT 2.9 minutes with 1 sleep onset REM. 3. History of iron deficiency anemia. 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 5. History of diabetes mellitus in the past. 6. Status post bariatric surgery. 7. Status post bilateral knee replacement. 8. Status post. 9. Obesity, BMI 49.4 Plan: 1. Continue using PAP equipment every night for the whole night. 2. Sleep hygiene with regular time in bed for at least 7.5-8 hours 3. I will increase dose of Sunosi to 2 tablets 75 mg a day. 4. Advised patient to remove all remaining water from humidifier canister daily and make it dry after each usage. Refill canister with fresh distilled water before each usage. 5. Watching weight. 6. Precautions related to driving. No driving if feel any sleepiness. 7. I will maintain prescription for PAP supplies including mask, tube, filters. 8. Follow up visit in 6 months or earlier if patient has any problems. Thank you very much for allowing me to participate in the management of your patient. Speedy Barajas MD, PhD, FAASM. Diplomat of [place] Board [employer] Sleep Medicine, Sleep Medicine Board by [employer] Board of Internal Medicine Corporate Pilot of [facility] [place] Objective - Vital Signs Vital Signs: Vital Signs Temp 98.1 F 01/22/25 14:41 Pulse 65 01/22/25 14:41 Resp 12 01/22/25 14:41 BP 156/90 01/22/25 14:41 Pulse Ox 99 01/22/25 14:41 FiO2 Intake & Output 01/21/25 01/22/25 01/22/25 18:59 06:59 18:59 Weight 124.738 kg Home Medications: Home Medications Medication Instructions Recorded Confirmed Type Ferrous Sulfate [Iron (65 MG 65 mg PO DAILY 05/31/17 10/02/24 History Elemental)] buPROPion HCL [Wellbutrin XL] 300 mg PO DAILY 05/31/17 10/02/24 History Gabapentin 600 mg PO TID 06/07/21 06/07/21 History Solifenacin Succinate [Vesicare] 10 mg PO DAILY 06/07/21 10/02/24 History Cephalexin [Keflex] 500 mg PO Q6HR 10 Days #40 cap 06/09/21 Rx Aspirin 81 mg PO DAILY 10/02/24 10/02/24 History Atorvastatin Calcium 10 mg PO DAILY 10/02/24 10/02/24 History Gabapentin [Neurontin] 600 mg PO DAILY 10/02/24 10/02/24 History Ibuprofen [Motrin] 800 mg PO DAILY 10/02/24 10/02/24 History Omeprazole 20 mg PO DAILY 10/02/24 10/02/24 History
== END ==
LOC: 3 N SLEEP 14:26
PROVIDERS: ATTEND Internal Medicine
DX: G47.33 Obstructive sleep apnea (adult) (pediatric) (principal); E11.9 Type 2 diabetes mellitus without complications; E66.9 Obesity, unspecified; Z86.2 Personal history of diseases of the blood and blood-forming organs and certain disorders involving the immune mechanism; Z68.42 Body mass index [BMI] 45.0-49.9, adult; Z98.890 Other specified postprocedural states; Z96.653 Presence of artificial knee joint, bilateral; Z96.698 Presence of other orthopedic joint implants; Z87.891 Personal history of nicotine dependence; Z91.018 Allergy to other foods; Z88.8 Allergy status to other drugs, medicaments and biological substances
CPT/HCPCS: 99212